=== PATIENT | male | born 1975 | race Caucasian/White ===

== ENCOUNTER 2024-02-14 15:36 | Outpatient (CLI) | payer OTHER, SELFPAY ==
[2024-02-14 15:54] LABS: Basophils Absolute Auto 0.1 K/mm3 (0.0-0.1); Basophils Percent Auto 0.8 % (0.2-1.2); Eosinophils Absolute Auto 0.3 K/mm3 (0-0.3); Hematocrit 42.8 % (42.0-52.0); Hemoglobin 14.8 g/dL (14.0-18.0); Immature Granulocyte Absolute 0.02 K/mm3 (0.00-0.031); Immature Granulocyte Percent A 0.3 % (0-0.5); Lymphocytes Absolute Auto 2.46 K/mm3 (0.9-3.2); Mean Corpuscular HGB Conc 34.6 g/dl (32-36); Mean Corpuscular Hemoglobin 31.5 pg (26-34); Mean Corpuscular Volume 91.1 fl (80-100); Mean Platelet Volume 9.2 fl (7.4-10.4); Monocytes Absolute Auto 0.7 K/mm3 (0.1-0.6); Monocytes Percent Auto 9.2 % (2.6-8.5); Neutrophils Absolute Auto 4.4 K/mm3 (1.3-6.7); Neutrophils Percent Auto 54.7 % (45.5-73.1); Platelet Count Result 266 k/mm3 (150-375); Red Cell Distribution Width 11.8 % (11.5-14.5); White Blood Count 7.9 K/mm3 (4.5-10.0)
[2024-02-14 17:05] LABS: Iron 124 ug/dL (49-181)
[2024-02-14 17:14] LABS: Percent Iron Saturation 35 % (20-50)
[2024-02-14 19:54] LABS: Alanine Aminotransferase 31 U/L (6-50); Alkaline Phosphatase 63 U/L (38-126); Anion Gap 11 mmol/L (4-12); Aspartate Amino Transferase 35 U/L (17-59); Bilirubin,Total 0.7 mg/dL (0.2-1.3); Blood Urea Nitrogen 17 mg/dL (9-20); Calcium 10.3 mg/dL (8.4-10.2); Carbon Dioxide 25 mmol/L (22-30); Chloride 104 mmol/L (98-107); Estimated Glomerular Filt Rate > 60; Glucose 88 mg/dL (65-110); Potassium 4.2 mmol/L (3.4-5.0); Sodium 140 mmol/L (137-145)
[2024-02-14 21:03] LABS: Folic Acid 13.6 ng/mL (2.76->20)
== END 2024-02-14 15:37 | disposition home or self-care (01) ==
LOC: ANHLAB 15:41
PROVIDERS: PCP Nurse Practitioner Family; Visit Provider Internal Medicine Hematology & Oncology
DX: D64.9 Anemia, unspecified (principal)
CPT/HCPCS: 36415; 80053; 82607; 82728; 82746; 83540; 83550; 85025

== ENCOUNTER 2024-02-25 15:11 | Outpatient (CLI) | payer OTHER, SELFPAY ==
[2024-03-07 23:28] LABS: Factor V (Leiden) Mutation POSITIVE
== END 2024-02-25 15:12 | disposition home or self-care (01) ==
LOC: ANHLAB 15:12
PROVIDERS: PCP Nurse Practitioner Family; Visit Provider Internal Medicine Hematology & Oncology
DX: D64.9 Anemia, unspecified (principal); D68.69 Other thrombophilia
CPT/HCPCS: 36415; 81240; 81241

== ENCOUNTER 2024-09-18 10:46 | Outpatient (CLI) | payer OTHER, SELFPAY ==
[2024-09-18 11:12] LABS: Basophils Absolute Auto 0.1 K/mm3 (0.0-0.1); Basophils Percent Auto 0.8 % (0.2-1.2); Eosinophils Absolute Auto 0.3 K/mm3 (0-0.3); Eosinophils Percent Auto 4.2 % (0-4.4); Hematocrit 46.2 % (42.0-52.0); Hemoglobin 15.9 g/dL (14.0-18.0); Immature Granulocyte Absolute 0.02 K/mm3 (0.00-0.031); Immature Granulocyte Percent A 0.3 % (0-0.5); Lymphocytes Absolute Auto 1.72 K/mm3 (0.9-3.2); Mean Corpuscular HGB Conc 34.4 g/dl (32-36); Mean Corpuscular Hemoglobin 31.5 pg (26-34); Mean Corpuscular Volume 91.7 fl (80-100); Mean Platelet Volume 9.1 fl (7.4-10.4); Monocytes Absolute Auto 0.6 K/mm3 (0.1-0.6); Monocytes Percent Auto 8.6 % (2.6-8.5); Neutrophils Absolute Auto 3.8 K/mm3 (1.3-6.7); Neutrophils Percent Auto 59.1 % (45.5-73.1); Platelet Count Result 266 k/mm3 (150-375); Red Blood Count 5.04 M/mm3 (4.6-6.20); Red Cell Distribution Width 11.7 % (11.5-14.5); White Blood Count 6.4 K/mm3 (4.5-10.0)
[2024-09-18 15:25] LABS: Iron 111 ug/dL (49-181)
[2024-09-18 15:31] LABS: Alanine Aminotransferase 51 U/L (6-50); Albumin Level 4.9 g/dL (3.5-5.1); Alkaline Phosphatase 66 U/L (38-126); Anion Gap 9 mmol/L (4-12); Aspartate Amino Transferase 43 U/L (17-59); Bilirubin,Total 0.6 mg/dL (0.2-1.3); Blood Urea Nitrogen 19 mg/dL (9-20); Calcium 9.8 mg/dL (8.4-10.2); Carbon Dioxide 31 mmol/L (22-30); Chloride 96 mmol/L (98-107); Estimated Glomerular Filt Rate > 60; Glucose 87 mg/dL (65-110); Potassium 4.6 mmol/L (3.4-5.0); Sodium 136 mmol/L (137-145)
[2024-09-18 15:38] LABS: Percent Iron Saturation 30 % (20-50)
[2024-09-18 16:42] LABS: Folic Acid 17.3 ng/mL (2.76->20)
== END 2024-09-18 10:47 | disposition home or self-care (01) ==
LOC: ANHLAB 10:48
PROVIDERS: PCP Nurse Practitioner Family; Visit Provider Internal Medicine Hematology & Oncology
DX: D64.9 Anemia, unspecified (principal)
CPT/HCPCS: 36415; 80053; 82607; 82728; 82746; 83540; 83550; 85025

== ENCOUNTER 2024-12-26 12:20 | Outpatient (CLI) | payer OTHER, SELFPAY ==
[2024-12-26 12:33] LABS: Basophils Absolute Auto 0.1 K/mm3 (0.0-0.1); Basophils Percent Auto 0.8 % (0.2-1.2); Eosinophils Absolute Auto 0.8 K/mm3 (0-0.3); Eosinophils Percent Auto 7.8 % (0-4.4); Hematocrit 39.1 % (42.0-52.0); Hemoglobin 13.7 g/dL (14.0-18.0); Immature Granulocyte Absolute 0.08 K/mm3 (0.00-0.031); Immature Granulocyte Percent A 0.8 % (0-0.5); Lymphocytes Absolute Auto 1.71 K/mm3 (0.9-3.2); Lymphocytes Percent Auto 17.7 % (18.3-44.2); Mean Corpuscular Hemoglobin 31.6 pg (26-34); Mean Corpuscular Volume 90.3 fl (80-100); Mean Platelet Volume 8.6 fl (7.4-10.4); Monocytes Absolute Auto 0.8 K/mm3 (0.1-0.6); Monocytes Percent Auto 8.2 % (2.6-8.5); Neutrophils Absolute Auto 6.3 K/mm3 (1.3-6.7); Neutrophils Percent Auto 64.7 % (45.5-73.1); Platelet Count Result 375 k/mm3 (150-375); Red Blood Count 4.33 M/mm3 (4.6-6.20); Red Cell Distribution Width 11.4 % (11.5-14.5); White Blood Count 9.7 K/mm3 (4.5-10.0)
[2024-12-26 13:50] LABS: Add Urine Microscopic? YES; Appearance Urine Clear (Clear); Bacteria Urine None Seen /hpf; Bilirubin Urine Negative (Negative); Blood Urine Negative (Negative); Color Urine Yellow (Yellow); Glucose Urine UA Negative (Negative); Ketones Urine Negative (Negative); Leukocyte Esterase Ur Trace LEU/UL (Negative); Nitrate Urine Negative (Negative); Non Pathogenic Casts 0-2; Protein Urine Negative (Negative); RBC Urine 0-2 /hpf (0-2); Specific Grav Ur 1.008 (1.001-1.035); Squamous Epithelial Cell Urine None Seen /hpf (Few); Urobilinogen Urine 0.2 mg/dL (<2.0); pH Urine 5.5 (5.0-9.0)
[2024-12-26 14:06] LABS: Hemoglobin A1C 5.8 % (<5.7)
[2024-12-26 14:06] LABS: Alanine Aminotransferase 31 U/L (6-50); Albumin Level 4.4 g/dL (3.5-5.1); Alkaline Phosphatase 88 U/L (38-126); Anion Gap 11 mmol/L (4-12); Aspartate Amino Transferase 27 U/L (17-59); Bilirubin,Total 0.7 mg/dL (0.2-1.3); Blood Urea Nitrogen 38 mg/dL (9-20); Calcium 9.5 mg/dL (8.4-10.2); Carbon Dioxide 28 mmol/L (22-30); Chloride 101 mmol/L (98-107); Estimated Glomerular Filt Rate 29; Glucose 85 mg/dL (65-110); Potassium 4.5 mmol/L (3.4-5.0); Sodium 140 mmol/L (137-145)
== END 2024-12-26 12:21 | disposition home or self-care (01) ==
LOC: ANHLAB 12:22
PROVIDERS: PCP Nurse Practitioner Family; Visit Provider Nurse Practitioner Family
DX: R35.1 Nocturia (principal)
CPT/HCPCS: 36415; 80053; 81001; 83036; 85025

== ENCOUNTER 2025-01-05 09:02 | Outpatient (CLI) | payer OTHER, SELFPAY ==
[2025-01-05 11:32] LABS: Add Urine Microscopic? YES; Appearance Urine Clear (Clear); Bacteria Urine None Seen /hpf; Bilirubin Urine Negative (Negative); Blood Urine Negative (Negative); Color Urine Yellow (Yellow); Glucose Urine UA Negative (Negative); Ketones Urine Negative (Negative); Leukocyte Esterase Ur 1+ LEU/UL (Negative); Nitrate Urine Negative (Negative); Non Pathogenic Casts 0-2; Protein Urine Negative (Negative); RBC Urine 0-2 /hpf (0-2); Specific Grav Ur 1.006 (1.001-1.035); Squamous Epithelial Cell Urine None Seen /hpf (Few); Urobilinogen Urine 0.2 mg/dL (<2.0); pH Urine 5.5 (5.0-9.0)
[2025-01-05 11:43] LABS: Albumin Level 4.4 g/dL (3.5-5.1); Anion Gap 14 mmol/L (4-12); Blood Urea Nitrogen 34 mg/dL (9-20); Calcium 9.6 mg/dL (8.4-10.2); Carbon Dioxide 26 mmol/L (22-30); Chloride 103 mmol/L (98-107); Estimated Glomerular Filt Rate 31; Glucose 143 mg/dL (65-110); Phosphorus 4.1 mg/dL (2.5-4.5); Potassium 4.4 mmol/L (3.4-5.0); Sodium 143 mmol/L (137-145)
[2025-01-08 14:38] LABS: PSA, Free 0.7 ng/mL; PSA, Total 4.5 ng/mL (< OR = 4.0); Percent Free Prostate Spec Ag 16 % (calc) (>25)
== END 2025-01-05 09:03 | disposition home or self-care (01) ==
LOC: ANHLAB 09:04
PROVIDERS: PCP Nurse Practitioner Family
DX: R35.0 Frequency of micturition (principal)
CPT/HCPCS: 36415; 80069; 81001; 84153; 84154; 87086

== ENCOUNTER 2025-03-02 12:56 | Outpatient (CLI) | payer OTHER, SELFPAY ==
--- NOTE | ~2025-03-02 | US_ITS ---
Renal-Bladder ultrasound Clinical History: Chronic kidney disease Technique: Real-time sonographic imaging of the kidneys and urinary bladder was performed. Findings: The right kidney measures 10.5 cm in length and the left kidney measures 9.9 cm. There is n o hydronephrosis or renal calculus identified. Renal cortical echogenicity is within normal limits. N o renal mass lesion is identified. The urinary bladder is partially distended at the time of this exam. No intraluminal echoes are ident ified. No abnormal wall thickening is seen. Impression: Unremarkable ultrasound of the kidneys and urinary bladder. Reviewed, dictated and finalized at location M. Impression: Unremarkable ultrasound of the kidneys and urinary bladder.
== END 2025-03-02 12:57 | disposition home or self-care (01) ==
LOC: MICIMG 12:57
PROVIDERS: PCP Internal Medicine Nephrology; Visit Provider Internal Medicine Nephrology
DX: N18.32 Chronic kidney disease, stage 3b (principal)
CPT/HCPCS: 76775

== ENCOUNTER 2025-03-10 08:32 | Outpatient (CLI) | payer OTHER, SELFPAY ==
[2025-03-10 09:42] LABS: Albumin Level 4.8 g/dL (3.5-5.1); Anion Gap 11 mmol/L (4-12); Blood Urea Nitrogen 19 mg/dL (9-20); Calcium 9.3 mg/dL (8.4-10.2); Carbon Dioxide 28 mmol/L (22-30); Chloride 100 mmol/L (98-107); Estimated Glomerular Filt Rate 41; Glucose 85 mg/dL (65-110); Phosphorus 3.2 mg/dL (2.5-4.5); Sodium 139 mmol/L (137-145)
[2025-03-10 09:47] LABS: Complement C3 144 mg/dL (88-165)
[2025-03-10 10:25] LABS: Creatinine Urine 85.3 mg/dL; Total Protein Urine Random 11 mg/dL; Ur Ttl Prot Creatinine Ratio 0.13 mg/mg (0-0.20)
--- OUTSIDE RECORDS SUMMARY | 2025-03-10 15:56 | XMS_ITS | Data Portability ---
Author Organization [place] [facility], Main Office Address [address] [place] [address] Care Team Providers Care Etl Data Architect Name Role Phone AMBER BANDA Primary Care Provider AMBER BANDA Referring Provider Assessment Encounter Date Assessment Date Assessment LastModified by Organization Details LastModified Time 01/20/2024 01/20/2024 I have reconciled the patient's medications post their discharge from inpatient facility. Not available 01/20/2024 09:13:13 08/16/2024 08/16/2024 48-year-old patient presents today with left ankle pain after a fall off of a ladder at work on Wednesday. He fell about 2 ft and rolled the ankle on the landing. He felt a pop. He presented to the emergency room where x-rays were taken and he was placed in a splint. He removed the splint on Wednesday and returned to work. Today he rates his pain 5/10. He has been ambulating on the ankle. He presents today in a work boot. For treatment he has been taking naproxen. Review of systems per patient questionnaire Imaging: X-rays reviewed show no acute bony abnormality or fracture. There is a displaced fracture of the dorsal aspect of the navicular that looks to be older. Preserved joint spaces throughout. Physical exam: Bruising and edema noted around ankle. Tenderness with palpitation over medial and lateral ankle over the soft tissues. No pain with palpitation over the top of the foot or elsewhere around foot. Able to perform gentle ankle range of motion. Able to wiggle toes. Sensation intact throughout. He states that even though it is painful he would like to continue walking on it and working. We recommended wearing a boot but he is not interested in this. We will provide him with a lace-up ankle brace that he can wear inside of a work boot. We discussed that if he would like restrictions for work we can write him a note for that. He is not interested. He can continue taking naproxen, icing, and elevating. We can see him back as needed for pain. He is in agreement with this plan. [email or web address] Not available 08/18/2024 09:27:38 Plan of Treatment Reminders Order Date Submit Date Provider Last Modified By Organization Details Last Modified Time Details Appointments Any 15 2024 08:30A M Nora hendrix MD Not available Not available Not available Lab urinalysi s complete, reflex culture 2024 025 [facility], [address] [place] [address], [id number], 01/11/2025 08:18:59 PSA, serum or plasma 2024 025 [facility], [address] [place] [address], [id number], 01/11/2025 08:18:59 renal function panel, serum 2024 025 [facility], [address] [place] [address], [id number], 01/08/2025 13:57:19 lipid panel, serum 2023 024 [facility] (Lab), [address] [place], [address], 06/13/2024 14:39:12 PSA, serum or plasma 2023 024 [facility] (Lab), [address] [place], [address], 06/28/2024 08:12:02 CBC w/ auto diff 2023 024 [facility] (Lab), [address] [place], [address], 12/11/2024 07:40:59 CMP, serum or plasma 2023 024 [facility] (Lab), [address] [place], [address], 12/11/2024 07:40:59 vitamin D, 25-hydrox y, total, serum 2023 024 [facility] (Lab), [address] [place], [address], 06/28/2024 08:12:01 hepatitis C virus Ab, serum 2023 024 [facility], [address] [place], [address], 06/28/2024 08:12:02 vitamin B12, serum 2023 024 [facility] (Lab), [address] [place], [address], 06/28/2024 08:12:01 TSH, serum or plasma 2023 024 [facility] (Lab), [address] [place], [address], 12/11/2024 07:40:58 T4, free, serum 2023 024 [facility] (Lab), [address] [place], [address], 06/28/2024 08:12:01 lipid panel, serum [address] [facility], [address] [place], [address], 03/02/2024 11:41:27 TSH, serum or plasma 2023 024 [facility] (Lab), [address] [place], [address], 07/25/2024 08:05:37 CBC w/ auto diff 2023 024 [facility] (Lab), [address] [place], [address], 02/17/2024 13:58:34 CMP, serum or plasma 2023 024 [facility] (Lab), [address] [place], [address], 07/25/2024 08:05:37 glycohemo globin, total, blood 2023 024 [facility] (Lab), [address] [place], [address], 07/25/2024 08:05:37 Referral None recorded. Procedures None recorded. Surgeries None recorded. Imaging None recorded. Medication Orders omeprazol e 20 mg capsule,d elayed release [facility]24 [facility]25 [id number], [address] [place], [place], [id number], 12/12/2024 09:20:58 Eliquis 5 mg tablet 2024 025 [facility], [address] [place], [place], [id number], 12/12/2024 09:20:57 omeprazol e 20 mg capsule,d elayed release 2023 024 [id number], [address] [place], [place], [id number], 06/13/2024 09:44:19 Eliquis 5 mg tablet [address] [id number], [address] [place], [id number], 12/12/2024 09:09:15 Patient TargetsNo targets recorded. Patient Instructions Encounter Date Encounter Id Patient Instructions Last Modified By Organization Details Last Modified Time 01/20/2024 [id number] Follow up in 4 months Labs ordered Prescription sent to pharmacy Thank you for your visit to our office today. We would like to request that you reach out to your referring or previous provider and request that they send us a Summary of Care in electronic form, so that we may have it on file in your medical record. At your visit, we had the medical records we needed to provide you with the best possible care; however, for insurance purposes, an electronic Summary of Care is beneficial. Thank you for your assistance in obtaining this information and we look forward to providing continued care to you. Please review your medication list from the Summary of Care for this visit. If there are any differences from what you are currently taking at home, please call us to discuss. Not available 01/20/2024 09:29:15 Homebound Status : {{Patient has an inability to leave the home without a taxing effort and assistance from another person Does not meet homebound status}} Required Home Health Services: {{none penitentiary, physical therapy, occupational therapy penitentiary, physical therapy penitentiary}} Durable Medical Equipment needed: {{cane walker walk er with seat manual wheelchair bedside commode oxygen}} Billing Guidelines CPT code 98307- Transitional Care Management services with moderate medical decision complexity (sgaa-gk-gwoe visit within 14 days of discharge). CPT code 34423- Transitional Care Management services with high medical decision complexity (fvay-of-dtcf visit within 7 days of discharge). Not available 01/20/2024 09:13:13 06/13/2024 [id number] Follow up in 6 months Obtain labs Prescription sent to pharmacy Tests: None Referral: None Recommend: None Not available 06/13/2024 09:43:08 12/12/2024 [id number] Follow up in 6 months Prescriptions sent to pharmacy Tests: Referral: Recommend: Tetanus vaccine Not available 12/12/2024 09:20:52 01/04/2025 [id number] Follow up in 3 months Obtain labs Tests: Referral: Recommend: Not available 01/04/2025 09:20:19 Reason for Referral None Reported. Results Created Date Observation Date Name Description Value Unit Range Abnormal Flag Note LastModifiedBy Organization Detail LastModifiedTime Result Notes None recorded. 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 819502454 Completed 06/13/2024 Amber Banda APRN [address], [address], [place], [address], Ayannah 4 14:47:56 Low back pain 562706981 Active Amber Banda APRN [address], [address], [place], [address], Ayannah 4 09:49:01 Current tear of medial cartilage AND/OR meniscus of knee Completed 06/13/2024 Amber Banda APRN [address], [address], [place], [address], Ayannah 4 14:47:54 Hematoche adrián 179236764 Active Amber Banda APRN [address], [address], [place], [address], Ayannah 4 15:34:49 Vomiting 411944068 Completed 06/13/[address], [place], [address], [place] 4 14:47:33 Factor V deficienc y 4898220 Active Amber Banda APRN [address], [address], [place], [address], [place] 4 15:34:42 Pain of hip region 93001227 Completed 06/13/2024 Amber Banda APRN [address], [address], [place], [address], Ayannah 4 14:47:51 Pulmonary embolism 44141456 Completed 06/13/2024 Amber Banda APRN [address], [address], [place], [address], Ayannah 14:47:41 Factor V Leiden mutation 753448694 Completed 202306/13/2024 Amber Banda APRN [address], [address], [place], [address], Boxed 14:48:09 Hyperlipi demia 68159416 Active 2023 Amber Banda APRN [address], [address], [place], [address], Boxed 14:47:48 Hypothyro idism 28416678 Active 2023 Amber Banda APRN [address], [address], [place], [address], Boxed 14:47:45 Vitamin D deficienc y 94864242 Active 2023 Amber Banda APRN [address], [address], [place], [address], Boxed 14:47:31 Gastroeso phageal reflux disease 969733099 Active 2023 GERSON Ru[address], [address], [place], [address], Boxed 09:34:21 Sprain of left ankle 928385301674 Active GERSON Ruiz [address], [place], [address], Boxed 10:22:40 Pain of left ankle joint 549214885739 [address]7076 Active 2023 JING Frazier null, [employer] [facility] [employer] [facility] 10:35:20 Pleurisy 352932319 Active [address]ERSON [address], [place], [address], Ayannah 5 17:27:53 Exacerbat ion of intermitt ent asthma 555042798 Active Amber Banda APRN [address], [address], [place], [address], Box[place] 5 17:27:53 Nocturia 387938988 Active 2024 Amber Banda APRN [address], [address], [place], [address], Boxed 5 14:05:30 Micturiti on frequency and polyuria 230176424 Active 2024 Amber Banda APRN [address], [address], [place], [address], Box[employer] 5 09:20:46 Serum creatinin e above reference range 471299041 Active 2024 Amber Banda APRN [address], [address], [place], [address], Box[place] 5 08:55:44 Chronic kidney disease stage 3B 549865008 Active 2024 Amber Banda APRN [address], [address], [place], [address], Box[employer] 5 08:20:38 Problem Notes None recorded. Medical Equipment None Reported. Allergies Allergen ID Allergen Name Allergen Category Reaction Reaction Severity Criticality Documentation Date Start Date Code Code System Note Provider Name and Address Organization Details Recorded Time acetamino phen / hydrocodo ne medicatio n Not available Not available Not available 01/06/2023 25788 2 RxNorm Not Available [employer] 3 08:14:33 97270 amoxicill in medicatio n vomiting Not available Not available 01/20/2024 723 RxNorm MARISA Doe, [facility] 4 09:05:25 Medications Name Sig Start Date Stop Date Status Note LastModified by Organization Details LastModified Time carisoprod ol 350 mg tablet Take 1 tablet every day by oral route at bedtime. 02/09 completed Not Available Not Available Not Available prednisone 10 mg tablet Take by oral route. active Not Available Not Available No t Available ipratropiu m 0.5 mg-albuter ol 3 mg (2.5 mg base)/3 mL nebulizati on soln 3 mL by inhalati on route. 11/25 completed Not Available Not Available Not Available azithromyc in 250 mg tablet TAKE 2 TABLETS (500 MG) BY ORAL ROUTE ONCE DAILY FOR 1 DAY THEN 1 TABLET (250 MG) BY ORAL ROUTE ONCE DAILY FOR 4 DAYS active Not Available Not Available No t Available aspirin 325 mg tablet Take 1 tablet every day by oral route. 12/29 completed Not Available Not Available Not Available Isovue-370 76 % intravenou s solution 100 mL by intraven . route. 11/25 completed Not Available Not Available Not Available phenazopyr idine 200 mg tablet TK 1 T PO TID 01/25 completed Not Available Not Available Not Available prednisone 20 mg tablet TAKE 2 TABLETS BY MOUTH DAILY FOR 5 DAYS 12/12 completed Not Available Not Available Not Available naproxen 250 mg tablet 250 mg by oral route. 08/12 completed Not Available Not Available Not Available acetaminop hen 300 mg-codeine 30 mg tablet TAKE 1 TABLET BY MOUTH FOUR TIMES DAILY NEEDED FOR PAIN 05/26 completed Not Available Not Available Not Available omeprazole 40 mg capsule,de layed release Take 1 capsule every day by oral route for 30 days. 02/09 completed Not Available Not Available Not Available tramadol 50 mg tablet Take 1 tablet 3 times a day by oral route as needed. 02/09 completed called toño bearden Not Available Not Available Not Available ketorolac 30 mg/mL (1 mL) injection solution Inject 1 mL every 6 hours by intramus cular route. 02/09 completed Not Available Not Available Not Available ceftriaxon e 1 gram solution for injection Take 1 g by injectio n route. 01/25 completed Not Available Not Available Not Available lansoprazo le 30 mg capsule,de layed release take 1 po qd 12/29 completed Not Available Not Available Not Available prednisone 50 mg tablet TAKE 1 TABLET BY MOUTH DAILY IN THE MORNING WITH FOOD 05/26 completed Not Available Not Available Not Available polymyxin B sulfate 10,000 unit-trime thoprim 1 mg/mL eye drops INSTILL 1-2 DROPS IN AFFECTED EYE FOUR TIMES DAILY X 7 DAYS 06/13 completed Not Available Not Available Not Available omeprazole 20 mg capsule,de layed release TAKE 1 CAPSULE BY MOUTH EVERY DAY IN THE MORNING FOR GERD active Not Available Not Available No t Available aspirin 81 mg chewable tablet Chew 1 tablet every day by oral route. 06/13 completed Not Available Not Available Not Available cefdinir 300 mg capsule TAKE ONE CAPSULE BY MOUTH TWICE DAILY FOR 7 DAYS 01/19 completed Not Available Not Available Not Available fluticason e propionate 50 mcg/actuat ion nasal spray,susp ension SPARY 1-2 SPRAYS INTO EACH NOSTRIL ONCE DAILY 06/13 completed Not Available Not Available Not Available naproxen 500 mg tablet TAKE 1 TABLET BY MOUTH TWICE DAILY WITH FOOD 12/12 completed Not Available Not Available Not Available amoxicilli n 875 mg-potassi um clavulanat e 125 mg tablet TAKE 1 TABLET BY MOUTH TWICE DAILY 01/19 completed Not Available Not Available Not Available azithromyc in 500 mg tablet Take 2 tablets every day by oral route for 1 day. active Not Available Not Available No t Available lansoprazo le 30 mg delayed release,di sintegrati ng tablet Take 1 tablet every day by oral route. 02/09 completed Not Available Not Available Not Available Excedrin Migraine PRN active Not Available Not Available Not Available omeprazole 20 mg tablet,del ayed release Take 1 tablet by oral route. 12/12 completed Not Available Not Available Not Available Eliquis 5 mg tablet TAKE 1 TABLET BY MOUTH TWICE DAILY active Not Available Not Available No t Available morphine 2 mg/mL intravenou s syringe 2 mg by intraven . route. 11/25 completed Not Available Not Available Not Available Fluvirin 2822-8590( PF) 45 mcg (15 mcg x3)/0.5 mL intramuscu lar syringe active Not Available Not Available Not Available Vitals Date Recorded Body weight Body mass index (BMI) Body height Heart rate Oxygen saturation Oxygen saturation in Arterial blood by Pulse oximetry Systolic blood pressure Diastolic blood pressure Provider Name and Address Organization Details Last Updated DateTime 4 24608.5 9 g 25.1 kg/m2 168.91 cm 76 /min 97 % 97 % 122 mm[Hg] 70 mm[Hg] Italo Amaya CMA [facility] [employer] [facility] 4 09:03:28 Date Recorded Body height Body mass index (BMI) Body weight Body temperature Heart rate Oxygen saturation Oxygen saturation in Arterial blood by Pulse oximetry Systolic blood pressure Diastolic blood pressure Provider Name and Address Organization Details Last Updated DateTime 4 168.91 cm 26.2 kg/m2 78716.7 4 g 97.2 [degF] 63 /min 96 % 96 % 118 mm[Hg] 68 mm[Hg] Sujatha Milan MA [facility] [employer] [facility] 4 09:03:54 Date Recorded Body height Body mass index (BMI) Body weight Pain severity - 0-10 verbal numeric rating [Score] - Reported Provider Name and Address Organization Details Last Updated DateTime 08/16/2024 168.91 cm 26.2 kg/m2 22865.74 g 5 JING Frazier [facility] [employer] [facility] 08/16/2024 10:33:12 Date Recorded Body height Body mass index (BMI) Body weight Body temperature Heart rate Oxygen saturation Oxygen saturation in Arterial blood by Pulse oximetry Pain severity - 0-10 verbal numeric rating [Score] - Reported Systolic blood pressure Diastolic blood pressure Provider Name and Address Organization Details Last Updated DateTime 5 168.91 cm 28.1 kg/m2 99297.8 5 g 97.3 [degF] 97 /min 98 % 98 % 0 114 mm[Hg] 72 mm[Hg] Sujatha Milan MA [facility] [employer] [facility] 5 09:07:46 Date Recorded Body height Body mass index (BMI) Body weight Body temperature Heart rate Oxygen saturation Oxygen saturation in Arterial blood by Pulse oximetry Pain severity - 0-10 verbal numeric rating [Score] - Reported Systolic blood pressure Diastolic blood pressure Provider Name and Address Organization Details Last Updated DateTime 5 168.91 cm 28.1 kg/m2 68178.8 5 g 97.4 [degF] 80 /min 98 % 98 % 0 108 mm[Hg] 72 mm[Hg] Sujatha Milan [place] [facility] [place] [employer] 5 09:07:14 Social History Question Answer Notes LastModified by Organizat ion Details LastModified Time Tobacco Smoking Status Former Smoker Not Available [facility] 01/06/2023 08:06:27 What Is Your Level Of Alcohol Consumption? None [id number] Information not available 01/06/2023 What Is Your Level Of Caffeine Consumption? Moderate [id number].85511 [id number] Information not available 01/06/2023 In The 14 Days Before Symptom Onset, Have You Had Close Contact With A Laboratory-confi rmed COVID-19 While That Case Was Ill? No MIGRATION.05703 25850 Information not available 01/06/2023 In The 14 Days Before Symptom Onset, Have You Had Close Contact With A Person Who Is Under Investigation For COVID-19 While That Person Was Ill? No MIGRATION.02461 23392 Information not available 01/06/2023 Are You Currently Employed? Yes darian Information not available 12/12/2024 What Type Of Diet Are You Following? REGULAR MIGRATION.33559 23167 Information not available 01/06/2023 What Is The Highest Grade Or Level Of School You Have Completed Or The Highest Degree You Have Received? 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 No MIGRATION.57831 25152 Information not available 01/06/2023 What Is The Fluoride Status Of Your Home? Unknown MIGRATION.38262 22307 Information not available 01/06/2023 When Did You Quit Smoking? 6-10yearssincelastc igarette MIGRATION.04054 40003 Information not available 01/06/2023 Are There Any Guns Present In Your Home? No MIGRATION.93615 04535 Information not available 01/06/2023 Do You Use Insect Repellent Routinely? No MIGRATION.37408 71608 Information not available 01/06/2023 Where Do You Live? SingleLevelHouse MIGRATION.14602 57535 Information not available 01/06/2023 What Was The Date Of Your Most Recent Tobacco Screening? 01/04/2025 [email or web address] Information not available 01/04/2025 Do You Have Any Pets? No MIGRATION.22318 32195 Information not available 01/06/2023 Do You Use Your Seat Belt Or Car Seat Routinely? Yes MIGRATION.29538 08771 Information not available 01/06/2023 Do You Have Smoke And Carbon Monoxide Detectors In Your Home? Yes MIGRATION.95754 47751 Information not available 01/06/2023 Are You Passively Exposed To Smoke? No MIGRATION.35369 29090 Information not available 01/06/2023 Are There Any Smokers In Your House? No MIGRATION.62205 09210 Information not available 01/06/2023 Do You Feel Stressed (tense, Restless, Nervous, Or Anxious, Or Unable To Sleep At Night)? [id number] MIGRATION.62129 66433 Information not available 01/06/2023 Do You Use Any Illicit Or Recreational Drugs? No MIGRATION.06637 72131 Information not available 01/06/2023 Do You Use Sunscreen Routinely? No MIGRATION.63473 24788 Information not available 01/06/2023 Have You Recently Traveled Abroad? No MIGRATION.85855 96836 Information not available 01/06/2023 Do You Have Any Dietary Restrictions? No MIGRATION.91235 60782 Information not available 01/06/2023 Do You Or Have You Ever Used Any Other Forms Of Tobacco Or Nicotine? No MIGRATION.06504 66364 Information not available 01/06/2023 Sex: Unknown Functional Status Question Answer Note LastModified by Organizat ion Details LastModified Time What is your exercise level? Moderate [id number] Information not available 01/06/2023 Mental Status None recorded. Family History Relationship Description Onset Age of this Age Resolved Age Notes LastModified by Organization Details LastModified Time Sister Blood coagulation disorder 18 [id number] Not available 01/06/2023 08:06:44 Father Family history of stroke [email or web address] Not available 2023 10:34:08 Father Hypertensive disorder [email or web address] Not available 2023 10:34:22 Medical History Condition Response NERVE DISEASE N BLINDNESS N RHEUMATIC FEVER N KIDNEY STONES N BLADDER PROBLEMS N MRSA N OTHER # 1 N POLIO N LUNG DISEASE/DISORDER N HISTORY OF DRUG ABUSE N RADIATION / CHEMOTHERAPY N COPD N Other # 2 N BLOOD DISEASES N EAR OR HEARING PROBLEMS N MUMPS N SHINGLES N BOWEL PROBLEMS N DEPRESSION (INCLUDING POST ) N STROKE/TIA N ULCERS N BENIGN PROSTATIC HYPERPLASIA N MEASLES N HYPOTENSION N MYOCARDIAL INFARCTION N OBESITY N GERD/NAUSEA N ANEURYSM N URINARY/BLADDER/KIDNEY PROBLEMS N CORONARY ARTERY DISEASE (CAD) N ADDICTION CONCERNS N Impotence N ENDOMETRIOSIS N USE OF BLOOD THINNERS N SKIN PROBLEMS N GASTROINTESTINAL DISORDER N PERIPHERAL VASCULAR DISEASE N MUSCLE,JOINT OR BONE PROBLEMS N GASTROINTESTINAL BLEEDING N BLOOD CLOTS Y ASTHMA N CATARACTS N ERECTILE DYSFUNCTION N VARICOSITIES N GI PROBLEMS N Low Testosterone N INFERTILITY N AIDS/HIV N CHEMOTHERAPY / RADIATION N LIVER DISEASE N MALE HYPOGONADISM N HYPERTENSION N Deficiency N TOURETTE'S N ANXIETY DISORDER N BLOOD TRANSFUSION N ANEMIA/BLOOD DISORDER N CHRONIC EAR INFECTIONS N BIPOLAR DISORDER Y BRONCHITIS N TUBERCULOSIS N GLAUCOMA N FOOT PROBLEM N DIVERTICULITIS N SLEEP APNEA N CHICKENPOX N INFECTIOUS DISEASE N PROSTATE N HEART ARRHYTHMIA N INSOMNIA N HIGH CHOLESTEROL / HYPERLIPIDEMIA N EYE PROBLEMS N HYPERTHYROIDISM N EDEMA N CHRONIC PAIN SYNDROME N HYPOTHYROIDISM N CONSTIPATION N CAROTID BLOCKAGE N BACK / NECK PROBLEMS N HAVE YOU BEEN HOSPITALIZED OR SEEN IN [facility] IN THE PAST YEAR ? N ATHEROSCLEROSIS N BREAST PROBLEMS N DIALYSIS N ECZEMA N OSTEOPOROSIS N ARTHRITIS N NO SIGNIFICANT PAST MEDICAL HISTORY N APPENDICITIS N DIABETES, TYPE N BAD TEETH N ENT N HEARTBURN / REFLUX N AUTISM SPECTRUM DISORDER (ASD) N HEPATITIS / LIVER DISEASE N GOUT N SLEEP DISORDER N ALZHEIMER'S DISEASE N Brain Problems N DEMENTIA N HERPES N SEIZURES/EPILEPSY N HEADACHES/MIGRAINES N VASCULAR DISEASE N PACEMAKER N Blood Disorder Y DIZZINESS N HEART DISEASE/HEART PROBLEMS N KIDNEY DISEASE N MULTIPLE SCLEROSIS N CANCER: SPECIFY N CARDIAC ARRHYTHMIA N ATRIAL FIBRILLATION N Gall Stones N PULMONARY EMBOLISM N AUTOIMMUNE DISEASE N Immunizations Vaccine Type Date Status Note Provider Nam e and Address Organization Details Recorded Time Tdap 06/08/2020 completed Amber Banda APRN [address], [facility] [address], [place], [address], [place] [facility] 06/13/2024 09:41:12 Influenza, high-dose, trivalent, PF 09/01/2014 completed Amber Banda APRN [address], [address], [place], [address], [facility] 05/17/2024 09:46:04 Past Encounters Encounter ID Performer Location Encounter Start Date Encounter Closed Date Diagnosis/Indication Diagnosis SNOMED-CT Code Diagnosis ICD10 Code Diagnosis Note [id number] JOSE Agrawal [facility] Internal Med [facility] [address] [place] [address]., [address] [address] 05/26/2022 00:00:00 05/26/2022 12:17:27 [id number] Nora downs MD [facility] Internal Med [facility] [address] [place] [address]., [address] [address] 07/02/2022 00:00:00 07/02/2022 11:55:12 [id number] Nora downs MD [facility] Internal Med [facility] [address] [place] [address] [address] 01/20/2024 08:54:27 01/20/2024 09:36:14 Transition of care [id number] 105 Z75.8 Factor V L eiden mutation 348920011 D68.51 Adult heal th examination 058112426 Z00.00 Z13.541 [id number] Nora downs MD [facility] Internal Med [facility] [address] [place], [place] [address]., [address] [address] 06/13/2024 08:54:59 06/13/2024 09:51:27 Hyperlipidemia 50992314 E78.5 Hypothyroidism 29161241 E03.9 Vitamin D deficiency 347 12810 E55.9 Adult heal th examination 385265125 Z00.00 Z13.220 Gastroesop hageal reflux disease 995415051 K21.9 Hepatitis C screening 41 8862380 Z11.59 [id number] Sloan Gupta MD [facility] [place] [address] [place] [address] 08/16/2024 10:05:08 08/16/2024 11:08:54 Pain of left ankle joint [id number] 3228399 M25.670 [id number] Nora downs MD [facility] Internal Med [facility] [address] [facility] [place] [address] 12/12/2024 08:58:43 12/12/2024 09:25:52 Gastroesophageal reflux disease 297370829 K21.9 Factor V L eiden mutation 982927859 D68.51 [id number] Nora downs MD [facility] Internal Med [address] [facility] [facility] [address] [place] [address] 01/04/2025 08:57:33 01/04/2025 09:29:16 Micturition frequency and polyuria 655818560 R35.0 Health Concerns Section Related Observation LastModified by Organization Detai ls LastModified Time None Recorded Concern Status LastModified by Organization Details LastModified Time None Recorded Advance Directives Directive None Recorded Payers Encounter Date Sequence Insurance Name Policy Number Policy Burdick Covered Member ID Burdick Member ID Guarantor Name 01/20/2024 1 [facility] (MEDICAID HMO) [id number] Galo Malave Nohemi [id number] Galo Malave Nohemi 06/13/2024 1 [facility] Galo Malave Nohemi [id number] Galo Harsha Song 08/16/2024 1 [facility] Galo Malave Nohemi [id number] Galo Harsha Song 12/12/2024 1 [facility] Galo Malave Nohemi [id number] Galo Malave Nohemi 01/04/2025 1 [facility] Galo Malave Nohemi [id number] Galo Malave Nohemi Notes Date Note Type Note Provider Name and Address Organization Details Recorded Time 01/20/2024 text/html Galo presents today to establish care and hospital follow up. 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 He went to the hospital due to shoulder and flank pain and found to have bilateral pulmonary embolisms. He was presents today to establish care. He also states that he also has acid reflux, takes over the counter remedies that does not help with the reflux. Amber Banda, [employer] [address] [facility], [address], [place], [address], [place] [employer] 01/20/2024 09:32:22 06/13/2024 text/html Galo presents today for 3 month follow up. He has been diagnosed with Factor V Leiden mutation and is currently taking Eliquis twice daily. 01/20/2024Khangtheresasabiha presents today to establish care and hospital follow up. 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 He went to the hospital due to shoulder and flank pain and found to have bilateral pulmonary embolisms. He was presents today to establish care. He also states that he also has acid reflux, takes over the counter remedies that does not help with the reflux. Amber Banda APRN [address], [address], [place], [address], [employer] 06/13/2024 09:45:43 12/12/2024 text/html Galo presents today for 6 month follow up. He states that a couple of weeks ago he went to the ED for pain in his left lung region, all testing was normal. He was placed on prednisone and cough medication. He states that he feels much better. 06/13/2024Khangtheresasabiha presents today for 3 month follow up. He has been diagnosed with Factor V Leiden mutation and is currently taking Eliquis twice daily. 01/20/2024Khangtheresasabiha presents today to establish care and hospital follow up. 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 He went to the hospital due to shoulder and flank pain and found to have bilateral pulmonary embolisms. He was presents today to establish care. He also states that he also has acid reflux, takes over the counter remedies that does not help with the reflux. Amber Banda APRN [address], [address], [place], [address], [employer] [facility] [employer] 12/12/2024 09:21:14 01/04/2025 text/html 01/04/2025Lunaharsha presents today for 1 month follow up. He states that he has been voiding more throughout the day/night, he states that he increased the amount of water that he will drink through the day. He states that he is also thirsty, but his appetite has decreased. He has not had any weight loss/gain. 12/14/2024Galo presents today for 6 month follow up. He states that a couple of weeks ago he went to the ED for pain in his left lung region, all testing was normal. He was placed on prednisone and cough medication. He states that he feels much better. 06/13/2024Galo presents today for 3 month follow up. He has been diagnosed with Factor V Leiden mutation and is currently taking Eliquis twice daily. 01/20/2024Galo presents today to establish care and hospital follow up. 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 He went to the hospital due to shoulder and flank pain and found to have bilateral pulmonary embolisms. He was presents today to establish care. He also states that he also has acid reflux, takes over the counter remedies that does not help with the reflux. Amber Banda APRN [address] [facility], [facility] [address], [place], [address], [place] [facility] 01/04/2025 09:26:08
--- OUTSIDE RECORDS SUMMARY | 2025-03-10 15:56 | XMS_ITS | Clinical Summary ---
Author Organization [facility] Address [address] [place] [id number] Care Team Providers Care Casing Tier Name Role Phone Amber Haskins NP Primary Care Provider Allergies Active Allergy Reactions Criticality Noted Date Comments Hydrocodone-Acetaminophen Shortness of breath High 0 01/20/2025 Medications metFORMIN (GLUCOPHAGE) 500 mg tablet Take 1 tablet (500 mg total) by mouth 2 (two) times a day with meals 120 tablet 01/20/2025 Active Encounters Date Type Department Care Team Description 01/20/2025 1:25 PM CDT - 01/20/2025 1:56 PM CDT Emergency [address] [address] Stage 3b chronic kidney disease (CKD) (HCC) (Primary Dx); Prediabetes Discharge Disposition: Discharge to home or self care from Last 3 Months Social History Tobacco Use Types Packs/Day Years Used Date Smoking Tobacco: Never Assessed Personal Safety Answer Date Recorded Have you ever been in or are you currently in a harmful physical or emotional relationship or is someone making you feel afraid or unsafe? 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 Gender Identity Not on file Sexual Orientation Not on file Last Filed Vital Signs Vital Sign Reading Time Taken Comments Blood Pressure 121/84 01/20/2025 1:30 PM CDT Pulse 71 01/20/2025 1:30 PM CDT Temperature 36.5 C (97.7 F) 01/20/2025 10:37 AM CDT Respiratory Rate 16 01/20/2025 1:30 PM CDT Oxygen Saturation 98% 01/20/2025 1:30 PM CDT Inhaled Oxygen Concentration - - Weight 79.5 kg (175 lb 4.3 oz) 01/20/2025 11:08 AM CDT Height - - Body Mass Index - - Plan of Treatment Health Maintenance Due Date Last Done Comments Depression Screening 1975 Hepatitis C Screening 1975 Hepatitis B Screening 1993 Regular Well Visit/Exam 18-64 1993 Pneumococcal vaccine <65 (1 of 2 - PCV) 1994 Influenza Vaccine (Season Ended) 2025 09/01/20 14 Colon Cancer Screening-Colonoscopy 01/15/20262015 DTaP/Tdap/Td Vaccine (2 - Td or Tdap) 06/08/203011/2019 Procedures Procedure Name Priority Date/Time Associated Diagnosis Comments CT ABDOMEN PELVIS WO CONTRAST ED 01/20/2025 1:15 PM CDT URINALYSIS, MICROSCOPIC ONLY STAT 01/20/2025 11:16 AM CDT URINALYSIS AND REFLEX TO MICROSCOPIC AND CULTURE STAT 01/20/2025 11:16 AM CDT EGFR STAT 01/20/2025 11:15 AM CDT HEMOGLOBIN A1C STAT 01/20/2025 11:15 AM CDT DIFFERENTIAL AUTO STAT 01/20/2025 11: 15 AM CDT MAGNESIUM STAT 01/20/2025 11:15 AM CDT THYROID FUNCTION CASCADE STAT 01/20/2025 11:15 AM CDT COMPREHENSIVE METABOLIC PANEL STAT 01/20/2025 11:15 AM CDT CBC WITH AUTO DIFFERENTIAL STAT 01/20/2025 11:15 AM CDT COLONOSCOPY 01/16/2016 12:00 AM WEDDING PHOTOGRAPHER from Last 3 Months or Most Recently Relevant to Health Maintenance Results * CT Abdomen Pelvis WO Contrast (01/20/2025 1:15 PM CDT) Anatomical Region Laterality Modality Body N/A Computed Tomogra phy 01/20/2025 1:20 PM CDT Narrative 01/20/2025 1:25 PM CDT EXAM DESCRIPTION: CT ABDOMEN PELVIS WO CONTRAST REASON FOR STUDY: Abdominal pain, acute, nonlocalized Pt arrives today from home Reports symptoms have been going on for the past month Difficulty sleeping Increased urination during the night, increased fatigue, increased thirst. Pt has Factor 5 Pt reports being tested for diabetes 2 weeks ago No known sx or ca TECHNIQUE: CT scan of the abdomen and pelvis performed without intravenous and without oral contrast using helical scanning technique. Reconstructed coronal and sagittal MPR images reviewed. All images stored on PACS. Automated exposure control was used as a dose optimization technique for this examination. COMPARISON: None FINDINGS: The sensitivity for detection of visceral lesions is diminished without the use of intravenous contrast. LOWER CHEST: The heart size is normal. There is no definite evidence of pericardial effusion. There is a mild right basilar and minimal left basilar subsegmental atelectasis and scarring. There is a small hiatal hernia. LIVER: The liver is grossly normal in size and contour. GALLBLADDER: Grossly unremarkable. BILE DUCTS: No intrahepatic or extrahepatic ductal dilatation. SPLEEN: The spleen is grossly normal in size and unremarkable. There are calcified granulomas noted in the spleen. PANCREAS: The pancreas has a grossly unremarkable unenhanced CT appearance. ADRENALS: The bilateral adrenal glands are grossly symmetrical and unremarkable. KIDNEYS/URINARY TRACT: There is no definite unenhanced CT evidence of a focal renal lesion. There is no definite evidence of nephrolithiasis. There is no definite evidence of hydronephrosis or hydroureter. There is circumferential mucosal thickening of the urinary bladder. The prostate gland measures 4.1 cm. GI: There is no definite evidence of a bowel obstruction. There is an air-filled appendix identified without definite evidence of pericecal or periappendiceal inflammatory changes to suggest appendicitis. There is mild mucosal thickening of the descending colon and sigmoid colon. There are scattered colonic diverticula without definite evidence of diverticulitis. There is a tiny fat containing periumbilical hernia. There is no definite evidence of free air or fluid in the abdomen and pelvis. There are borderline enlarged and prominent subcentimeter retroperitoneal lymph nodes with the largest measuring 1.1 cm in the left para-aortic region (axial image 62). There are borderline enlarged and prominent subcentimeter pelvic lymph nodes noted bilaterally with largest lymph node measuring 1.0 cm on the right in the right external iliac region (axial image 117) and 1.1 cm on the left in the left external iliac region (axial image 115). There are scattered subcentimeter inguinal lymph nodes noted bilaterally with the largest measuring 0.5 cm on the right (axial image 130) and 0.7 cm on the left (axial image 141). MUSCULOSKELETAL: There are degenerative changes of the spine. There are mild degenerative changes bilateral sacroiliac joints and bilateral hips. OTHER: No other abnormality. IMPRESSION: No definite evidence of obstructive uropathy or nephrolithiasis. Circumferential mucosal thickening of the urinary bladder, which may be related to underdistention versus cystitis. Clinical correlation with urinary analysis is recommended as clinically indicated. No definite evidence of bowel obstruction. Mild mucosal thickening of the descending colon and sigmoid colon, which may be related to underdistention versus mild colitis of infectious or inflammatory etiology. Borderline enlarged and prominent subcentimeter retroperitoneal and pelvic lymph nodes, which are indeterminate in etiology. Clinical correlation with laboratory values is recommended as clinically indicated. The necessity for further evaluation with PET-CT can be determined clinically, and at a minimum, short-term follow-up repeat CT in 3 months is recommended to assess for stability and/or resolution as clinically indicated. Scattered colonic diverticula without definite evidence of diverticulitis. Normal appendix. THIS IS AN ELECTRONICALLY VERIFIED FINAL REPORT 01/20/2025 1:25 PM - Electronically signed by Layton PERRY T: Report ID: [id number] Reading Location: [id number] Procedure Note Layton Bryan DO - 01/20/2025 EXAM DESCRIPTION: CT ABDOMEN PELVIS WO CONTRAST REASON FOR STUDY: Abdominal pain, acute, nonlocalized Pt arrives today from home Reports symptoms have been going on for thepast month Difficulty sleeping Increased urination during the night,increased fatigue, increased thirst. Pt has Factor 5 Pt reports being tested for diabetes 2 weeks ago No known sx or ca TECHNIQUE: CT scan of the abdomen and pelvis performed without intravenousand without oral contrast using helical scanning technique. Reconstructed coronal and sagittal MPR images reviewed. All images stored on PACS.Automated exposure control was used as a dose optimization technique for this examination. COMPARISON: None FINDINGS: The sensitivity for detection of visceral lesions is diminished without the use of intravenous contrast. LOWER CHEST: The heart size is normal. There is no definite evidence of pericardial effusion. There is a mild right basilar and minimal leftbasilar subsegmental atelectasis and scarring. There is a small hiatal hernia. LIVER: The liver is grossly normal in size and contour. GALLBLADDER: Grossly unremarkable. BILE DUCTS: No intrahepatic or extrahepatic ductal dilatation. SPLEEN: The spleen is grossly normal in size and unremarkable. Thereare calcified granulomas noted in the spleen. PANCREAS: The pancreas has a grossly unremarkable unenhanced CTappearance. ADRENALS: The bilateral adrenal glands are grossly symmetrical and unremarkable. KIDNEYS/URINARY TRACT: There is no definite unenhanced CT evidence of a focal renal lesion. There is no definite evidence of nephrolithiasis.There is no definite evidence of hydronephrosis or hydroureter. There is circumferential mucosal thickening of the urinary bladder. The prostategland measures 4.1 cm. GI: There is no definite evidence of a bowel obstruction. There is an air-filled appendix identified without definite evidence of pericecal or periappendiceal inflammatory changes to suggest appendicitis. There ismild mucosal thickening of the descending colon and sigmoid colon. There are scattered colonic diverticula without definite evidence of diverticulitis. There is a tiny fat containing periumbilical hernia. There is no definite evidence of free air or fluid in the abdomen and pelvis. There are borderline enlarged and prominent subcentimeter retroperitoneal lymph nodes with the largest measuring 1.1 cm in the left para-aorticregion (axial image 62). There are borderline enlarged and prominentsubcentimeter pelvic lymph nodes noted bilaterally with largest lymph node measuring 1.0cm on the right in the right external iliac region (axial image 117) and 1.1cm on the left in the left external iliac region (axial image 115). Thereare scattered subcentimeter inguinal lymph nodes noted bilaterally with the largest measuring 0.5 cm on the right (axial image 130) and 0.7 cm on theleft (axial image 141). MUSCULOSKELETAL: There are degenerative changes of the spine. There are mild degenerative changes bilateral sacroiliac joints and bilateral hips. OTHER: No other abnormality. IMPRESSION: No definite evidence of obstructive uropathy or nephrolithiasis. Circumferential mucosal thickening of the urinary bladder, which may be related to underdistention versus cystitis. Clinical correlation withurinary analysis is recommended as clinically indicated. No definite evidence of bowel obstruction. Mild mucosal thickening of the descending colon and sigmoid colon, whichmay be related to underdistention versus mild colitis of infectious or inflammatory etiology. Borderline enlarged and prominent subcentimeter retroperitoneal andpelvic lymph nodes, which are indeterminate in etiology. Clinical correlationwith laboratory values is recommended as clinically indicated. The necessityfor further evaluation with PET-CT can be determined clinically, and at aminimum, short-term follow-up repeat CT in 3 months is recommended to assess for stability and/or resolution as clinically indicated. Scattered colonic diverticula without definite evidence ofdiverticulitis. Normal appendix. THIS IS AN ELECTRONICALLY VERIFIED FINAL REPORT 01/20/2025 1:25 PM - Electronically signed by Layton Bryan D.O. PS T: Report ID: [id number] Reading Location: [place] [address] PROCEDURES Final Resu lt * (ABNORMAL) Urinalysis reflex to microscopic and culture Urine (01/20/2025 11:16 AM CDT) Color, ur Straw Yellow Clarity, ur Clear Clear [facility] Specific gravity, ur 1.008 1.003 - 1.030 EST[facility]AN pH, urine 5.5 [facility] ANN Comment: Interpretive Data U rine pH is affected by diet, medications, systemic acid-base disturbances, and renal tubular function. pH may affect urinary stone formation. For example, urine pH below 6.0 may help reduce the tendency for calcium phosphate stones and pH greater than 6.0 may reduce the tendency for uric acid stone formation. Source: [place] Current Interpretive Data was last revised on 2017 Protein, ur ql Negative Negative [facility] Glucose, ur ql Negative Negative [facility] Ketones, ur Negative Negative [facility] Bilirubin, ur Negative Negative [facility] Blood, ur Negative Negative [facility] Urobilinogen, ur <2.0 <2.0 mg/dL [facility] Nitrite, ur Negative Negative [facility] Leukocyte esterase, ur 2+(A) Negative [facility] UA reflex comment Reflex to microscopic UA will be performed. [facility] Urine 01/20/2025 11:1 6 AM CDT 01/20/2025 11:20 AM CDT us Sharmin WALKER LAB MICROBIOLOGY - GENERAL O RDERABLES Final Result Performing Organization Address [facility] de Phone Number [address] [place] [address] * (ABNORMAL) Urinalysis, microscopic only (01/20/2025 11:16 AM CDT) Pathologist [facility] WBC, ur 0-5 0 - 5 /HPF RBC, ur 0-2 0 - 2 /HPF [facility] Mucous, ur Present(A) [facility] Culture Reflex Comment Reflex conditions for urine culture (WBC >10) not met. [facility] Urine 01/20/2025 11:1 6 AM CDT 01/20/2025 11:20 AM CDT us Sharmin WALKER LAB URINE ORDERABLES Final R esult Performing Organization Address [facility] Co de Phone Number [address] [place] [address] * (ABNORMAL) eGFR (01/20/2025 11:15 AM CDT) eGFR 48(L) >=60 mL/min/1. 73 m2 Comment: Interpretive Data Reference Interval Normal >/= 90 mL/min/1.73m2 Mildly decreased* 60 - 89 mL/min/1.73m2 Mildly to moderately decreased 45 - 59 mL/min/1.73m2 Moderately to severely decreased 30 - 44 mL/min/1.73m2 Severely decreased 15 - 29 mL/min/1.73m2 Kidney Failure < 15 mL/min/1.73m2 *Relative to young adult level Estimated glomerular filtration rate is determined by the 2020 CKD-EPI equation recommended by the National Kidney Foundation (A Unifying Approach to GFR Estimation: Recommendations of the NKF-ASK Task Force on Reassessing the Inclusion of Race in Diagnosing Kidney Disease, JASN 202). The CKD-EPI equation should not be used for patients with unstable renal function and has not been validated in children and those over 70. Current interpretive data was last reviewed 2021. Blood 01/20/2025 11:1 5 AM CDT 01/20/2025 11:20 AM CDT us Sharmin WALKER LAB BLOOD ORDERABLES Final R esult [place] [id number] [facility] Department [place] [address] * (ABNORMAL) Differential, auto (01/20/2025 11:15 AM CDT) Neutrophil abs 4.7 1.5 - 6.5 K/cumm Imm gran abs 0.1 0.0 - 0.1 K/cumm [facility] Lymphocyte abs 1.6 0.8 - 3.3 K/cumm [facility] Monocyte abs 0.6 0.2 - 0.8 K/cumm [facility] Eosinophil abs 0.6(H) 0.0 - 0.5 K/cumm [facility] Basophil abs 0.1 0.0 - 0.1 K/cumm [facility] Neutrophil pct 61.9 % [facility] Comment: Interpretive Data Percent cell count reference ranges are not reported, since discordance with absolute values may lead to misinterpretation of CBC data. Current Interpretive Data was last revised on 2018. Imm gran pct 0.7 % [facility] Comment: Interpretive Data Percent cell count reference ranges are not reported, since discordance with absolute values may lead to misinterpretation of CBC data. Current Interpretive Data was last revised on 2018. Lymphocyte pct 20.9 % [facility] Comment: Interpretive Data Percent cell count reference ranges are not reported, since discordance with absolute values may lead to misinterpretation of CBC data. Current Interpretive Data was last revised on 2018. Monocyte pct 8.1 % [facility] Comment: Interpretive Data Percent cell count reference ranges are not reported, since discordance with absolute values may lead to misinterpretation of CBC data. Current Interpretive Data was last revised on 2018. Eosinophil pct 7.7 % [facility] Comment: Interpretive Data Percent cell count reference ranges are not reported, since discordance with absolute values may lead to misinterpretation of CBC data. Current Interpretive Data was last revised on 2018. Basophil pct 0.7 % [facility] Comment: Interpretive Data Percent cell count reference ranges are not reported, since discordance with absolute values may lead to misinterpretation of CBC data. Current Interpretive Data was last revised on 2018. Blood 01/20/2025 11:1 5 AM CDT 01/20/2025 11:20 AM CDT Sharmin WALKER LAB BLOOD ORDERABLES Final R esult Performing Organization Address City/[facility]/ZIP Co de Phone Number [address] [place] [address] * Thyroid Function [place] (01/20/2025 11:15 AM CDT) TSH 2.94 0.30 - 4.20 mcIUnit/mL Blood 01/20/2025 11:1 5 AM CDT 01/20/2025 11:20 AM CDT Sharmin WALKER LAB BLOOD ORDERABLES Final R esult [address] [place] [address] * (ABNORMAL) CBC with auto differential (01/20/2025 11:15 AM CDT) WBC 7.6 3.8 - 9.9 K/cumm Hgb 12.5(L) 13.0 - 17.5 g/dL [facility] Hct 36.0(L) 38.9 - 50.3 % [facility] Plt 267 150 - 400 K/cumm [facility] MPV 9.3 9.1 - 12.3 fL [facility] RBC 3.97(L) 4.30 - 5.80 M/cumm [facility] MCV 90.7 81.3 - 96.4 fL [facility] MCH 31.5 27.1 - 33.3 pg [facility] MCHC 34.7 32.3 - 35.7 g/dL [facility] RDW CV 11.8 11.1 - 14.9 % [facility] RDW SD 39.3 35.7 - 48.1 fL [facility] NRBC abs 0.00 0.00 - 0.01 K/cumm [facility] Blood 01/20/2025 11:1 5 AM CDT 01/20/2025 11:20 AM CDT Sharmin WALKER LAB BLOOD ORDERABLES Final R esult Performing Organization Address City/[facility] Co de Phone Number [address] [place], [place] [id number] * Magnesium (01/20/2025 11:15 AM CDT) Pathologist [facility] Magnesium 1.9 1.4 - 2.5 mg/dL Blood 01/20/2025 11:1 5 AM CDT 01/20/2025 11:20 AM CDT Sharmin WALKER LAB BLOOD ORDERABLES Final R esult Performing Organization Address City/[facility] Co de Phone Number [address] [place], [place] [id number] * (ABNORMAL) Hemoglobin A1c (01/20/2025 11:15 AM CDT) Hgb A1C 5.9(H) 4.0 - 5.6 % Estimated Average Glucose 123 mg/dL [facility] Comment: The ADA recommends reporting an estimated Average Glucose (eAG) with all Hemoglobin A1c results using the equation derived from a study of 507 normal and diabetic adults. Minority populations were underrepresented and children were not included. (Diabetes Care 31:8761-1965, 2008). The eAG is not equivalent to a fasting glucose. Blood 01/20/2025 11:1 5 AM CDT 01/20/2025 11:20 AM CDT Sharmin WALKER LAB BLOOD ORDERABLES Final R esult [facility] [address] [facility] Department [place] [address] * (ABNORMAL) Comprehensive metabolic panel (01/20/2025 11:15 AM CDT) Sodium 138 135 - 145 mmol/L Potassium, pl 4.5 3.3 - 4.9 mmol/L [facility] Chloride 102 97 - 110 mmol/L [facility] CO2 24 22 - 32 mmol/L [facility] Anion gap 12 2 - 15 mmol/L [facility] BUN 35(H) 6 - 25 mg/dL [facility] Creatinine 1.71(H) 0.80 - 1.30 mg/dL [facility] Glucose 103 70 - 199 mg/dL [facility] Comment: Interpretive Data Fasting glucose >/= 126 mg/dl is diagnostic for diabetes. Fasting is defined as no caloric intake for at least 8 hours. Fasting glucose between 100 mg/dl to 125 mg/dl is diagnostic of prediabetes. In a patient with classic symptoms of hyperglycemia or hyperglycemic crisis, a random glucose >/= 200 mg/dl is diagnostic for diabetes. In the absence of unequivocal hyperglycemia, results should be confirmed by repeat testing. The classification and Diagnosis of Diabetes Diabetes Care 202; 46: S19-S40. Current interpretive data was last revised 2022. Calcium 9.6 8.5 - 10.3 mg/dL [facility] Bilirubin, total 0.4 0.1 - 1.2 mg/dL [facility] Protein, pl 7.8 6.5 - 8.5 g/dL [facility] Albumin 4.3 3.5 - 5.0 g/dL [facility] Alk phos 89 40 - 130 Units/L [facility] ALT 136(H) 7 - 55 Units/L [facility] AST 86(H) 10 - 50 Units/L [facility] Blood 01/20/2025 11:1 5 AM CDT 01/20/2025 11:20 AM CDT us Sharmin WALKER LAB BLOOD ORDERABLES Final R esult [facility] [address] [facility] [place] [address] * COLONOSCOPY (01/16/2016 12:00 AM WEDDING PHOTOGRAPHER) Anatomical Region Laterality Modality Other Narrative 01/16/2016 12:00 AM WEDDING PHOTOGRAPHER Ordered by an unspecified provider. Procedure Note ProviderSony MD - 01/16/2016 12:00 AM CST PROCEDURE REPORT Patient: GALO WHITMAN Account: [id number] Room No: : 1975 Patient Type: [facility] Attend.: Sloan Mcclellan M.D. Admit Date: 01/16/2016 Dict.: Sloan Mcclellan M.D. Disch. Date: 01/16/2016 NAME OF PROCEDURE: Colonoscopy. HISTORY: This is a 40-year-old white male with nausea, vomiting andabdominal pain and bright red blood per rectum who presents. PHYSICAL EXAMINATION: GENERAL: Thin male. LUNGS: Clear. CARDIOVASCULAR: Unremarkable. PROCEDURE: Colonoscopy was performed with an Olympus video endoscope. On digital exam, there is grade II hemorrhoids. We inserted the endoscopeand advanced it to the cecum. The colonic prep was excellent. We carefullysearched the mucosa and could find no evidence of inflammation or neoplasiaanywhere through the length of the bowel. The patient tolerated the procedurewithout difficulty. POSTOPERATIVE DIAGNOSIS: Grade II hemorrhoids otherwise normal. PLAN: Surveillance at age 50. Electronically Authenticated and Edited by: Sloan Mcclellan MD On 01/17/2016 11:30 AM WEDDING PHOTOGRAPHER Sloan Mcclellan M.D. /laura TD: 01/17/2016 08:04 CC: Jamin eMlo MD us Historical Provider ENDOSCOPY PROCEDURES Jennifer l Result from Last 3 Months or Most Recently Relevant to Health Maintenance [place] [address] Care Teams Casing Tier Relationship Specialty Start Date End Date Amber Haskins NP [address] [place] [address] PCP - General Family Medicine 01/20/25
--- OUTSIDE RECORDS SUMMARY | 2025-03-10 15:57 | XMS_ITS | Clinical Summary ---
Author Organization [facility] [place] Anastacio pineda Jamilah Address [address] [place] [address] Care Team Providers Care Filter Press Tender Head Name Role Phone Nora Muir MD Primary Care Provider Allergies Active Allergy Reactions Criticality Noted Date Comments Hydrocodone-Acetaminophen Shortness of Breath/Wheezing High 02/14/2024 Medications apixaban (Eliquis) 5 mg tablet Take 5 mg by mouth 2 times daily. Active omeprazole (PriLOSEC) 20 mg Capsule, Delayed Release(E.C.) Take 20 mg by mouth daily. 09/08/2024 Active Active Problems No known active problems Encounters Date Type Department Care Team Description 02/20/2025 External Device Data STL ABSTRACTION Provider, Abstract 01/24/2025 Telephone [facility] [place] Oncology and Hematology [address] [place] [phone] Miles Guillen MD Medication Review 01/13/2025 External Device Data STL ABSTRACTION Provider, Abstract 01/12/2025 External Device Data STL ABSTRACTION Provider, Abstract 01/10/2025 Telephone [facility] [place] Oncology formerly [facility] Hematology [address] [place] [phone] Miles Guillen MD Kidney Concerns 01/02/2025 External Device Data STL ABSTRACTION Provider, Abstract from Last 3 Months Family History Medical History Relation Name Comments Heart Disease Father Relation Name Status Comments Brother Alive Daughter Alive Father Mother Sister 1 Sister 2 Alive Social History Tobacco Use Types Packs/Day Years Used Date Smoking Tobacco: Former Cigarettes Q uit: 1984 Smokeless Tobacco: Never Tobacco Cessation:Counseling Given: Not Answered Alcohol Use Standard Drinks/Week Comments Not Currently 0 (1 standard drink = 0.6 oz pur e alcohol) Sex and Gender Information Value Date Recorded Sex Assigned at Male 09/21/2024 7:08 PM ESCROW REPRESENTATIVE Legal Sex Male 2:19 PM CDT Gender Identity Male 09/21/2024 7:08 PM ESCROW REPRESENTATIVE Sexual Orientation Straight 09/21/2024 7: 08 PM ESCROW REPRESENTATIVE Last Filed Vital Signs Vital Sign Reading Time Taken Comments Blood Pressure 124/77 09/20/2024 1:06 PM ESCROW REPRESENTATIVE Pulse 88 09/20/2024 1:06 PM ESCROW REPRESENTATIVE Temperature 36.9 C (98.4 F) 09/20/2024 1:06 PM ESCROW REPRESENTATIVE Respiratory Rate 16 09/20/2024 1:06 PM ESCROW REPRESENTATIVE Oxygen Saturation 93% 09/20/2024 1:06 PM ESCROW REPRESENTATIVE Inhaled Oxygen Concentration - - Weight 77.6 kg (171 lb) 09/20/2024 1:06 PM ESCROW REPRESENTATIVE Height 168.9 cm (5' 6.5 ) 02/14/2024 2:40 PM CDT Body Mass Index 27.19 02/14/2024 2:40 PM CDT Plan of Treatment Upcoming Encounters Date Type Department Care Team (Late st Contact Info) Description 06/25/2025 10:00 AM CDT Office Visit [facility] [place] Oncology and Hematology [facility] [address] [facility] [address] [place] [address] Miles Guillen MD [address] [facility] [address] [place] [address] Health Maintenance Due Date Last Done Comments Pre-Diabetes and Diabetes Screening 1975 DTAP/TDAP/TD VACCINES (1 - Tdap) 1994 HEPATITIS B VACCINES (1 of 3 - 19+ 3-dose series) 08/08 COLORECTAL SCREENING 2020 Colorectal Cancer Screening 2020 FIT-DNA Q 3 years 2020 FIT/FOBT Q 1 year 2020 Flex Sig/CT Colonography Q 5 years 2020 INFLUENZA VACCINE (#1) 2024 Insurance [employer] [facility] [id number] Care Teams Filter Press Tender Head Relationship Specialty Start Date End Date Nora Muir MD PCP - General Internal Medicine 02/14/24
--- OUTSIDE RECORDS SUMMARY | 2025-03-10 15:57 | XMS_ITS | Referral Summary ---
Author Organization [facility] Address [address] [place] [address] Care Team Providers Care Bank Accountant Name Role Phone Amber Haskins NP Primary Care Provider Encounters Date Type Department Care Team Description 01/20/2025 1:25 PM CDT - 01/20/2025 1:56 PM CDT Emergency [address] [address] Stage 3b chronic kidney disease (CKD) (HCC) (Primary Dx); Prediabetes Discharge Disposition: Discharge to home or self care from Last 3 Months Allergies Active Allergy Reactions Criticality Noted Date Comments Hydrocodone-Acetaminophen Shortness of breath High 0 01/20/2025 Medications metFORMIN (GLUCOPHAGE) 500 mg tablet Take 1 tablet (500 mg total) by mouth 2 (two) times a day with meals 120 tablet 01/20/2025 Active Social History Tobacco Use Types Packs/Day Years Used Date Smoking Tobacco: Never Assessed Personal Safety Answer Date Recorded Have you ever been in or are you currently in a harmful physical or emotional relationship or is someone making you feel afraid or unsafe? Denies 01/20/2025 Sex and Gender Information Value Date Recorded Sex Assigned at Not on file Legal Sex Male 9:27 PM COKE DRAWER HAND Gender Identity Not on file Sexual Orientation [...] Mass Index - - Plan of Treatment Not on file Procedures Procedure Name Priority Date/Time Associated Diagnosis [...] 11:15 AM CDT COLONOSCOPY 01/16/2016 12:00 AM COKE DRAWER HAND from Last 3 Months or Most Recently [...] Layton Bryan D.O. PS T: Report ID: [id number] Reading Location: [place] [address] Procedure Note Layton Bryan, DO - 01/20/2025 EXAM DESCRIPTION: CT ABDOMEN [...] Layton Bryan D.O. PS T: Report ID: [id number] Reading Location: [place] [address] PROCEDURES Final Resu lt * (ABNORMAL) Urinalysis reflex to microscopic and culture Urine (01/20/2025 11:16 AM CDT) Color, ur Straw Yellow Clarity, ur Clear Clear EST[facility] Specific gravity, ur 1.008 1.003 - 1.030 ESTEVAN pH, urine 5.5 [facility] Comment: Interpretive Data U rine pH is affected by diet, medications, systemic acid-base disturbances, and renal tubular function. pH may affect urinary stone formation. For example, urine pH below 6.0 may help reduce the tendency for calcium phosphate stones and pH greater than 6.0 may reduce the tendency for uric acid stone formation. Source: [employer] Current Interpretive Data was last revised on 2017 Protein, ur ql Negative Negative [facility] Glucose, ur ql Negative Negative [facility] Ketones, ur Negative Negative [facility] Bilirubin, ur Negative Negative [facility] Blood, ur Negative Negative [facility] Urobilinogen, ur <2.0 <2.0 mg/dL [facility] Nitrite, ur Negative Negative [facility] Leukocyte esterase, ur 2+(A) Negative [facility] UA reflex comment Reflex to microscopic UA will be performed. EST[facility]AN Urine 01/20/2025 11:1 6 AM CDT 01/20/2025 11:20 AM CDT Shar[facility] MICROBIOLOGY - GENERAL O RDERABLES Final Result Performing Organization Address [facility] de Phone Number ESTEVAN [address] [address] * (ABNORMAL) Urinalysis, microscopic only (01/20/2025 11:16 AM CDT) WBC, ur 0-5 0 - 5 /HPF RBC, ur 0-2 0 - 2 /HPF [facility] Mucous, ur Present(A) [facility] Culture Reflex Comment Reflex conditions for urine culture (WBC >10) not met. [facility] Urine 01/20/2025 11:1 6 AM CDT 01/20/2025 11:20 AM CDT us [facility] URINE ORDERABLES Final R esult Performing Organization Address [facility] de Phone Number ESTEVAN [address] [address] * (ABNORMAL) eGFR (01/20/2025 11:15 AM CDT) [...] of Race in Diagnosing Kidney Disease, JASN 2020). The CKD-EPI equation should not be used for patients with unstable renal function and has not been validated in children and those over 70. Current interpretive data was last reviewed 2021. Blood 01/20/2025 11:1 5 AM CDT 01/20/2025 11:20 AM CDT us [facility] BLOOD ORDERABLES Final R esult [facility] [address] [facility] [place] [address] * (ABNORMAL) Differential, auto (01/20/2025 11:15 AM CDT) Pathologist [facility] Neutrophil abs 4.7 1.5 - 6.5 K/cumm Imm gran abs 0.1 0.0 - 0.1 K/cumm [facility] Lymphocyte abs 1.6 0.8 - 3.3 K/cumm [facility] Monocyte abs 0.6 0.2 - 0.8 K/cumm [facility] Eosinophil abs 0.6(H) 0.0 - 0.5 K/cumm [facility] Basophil abs 0.1 0.0 - 0.1 K/cumm [facility] Neutrophil pct 61.9 % [facility] Comment: Interpretive Data Percent cell count reference ranges are not reported, since discordance with absolute values may lead to misinterpretation of CBC data. Current Interpretive Data was last revised on 2018. Imm gran pct 0.7 % [facility] Comment: Interpretive Data Percent cell count reference ranges are not reported, since discordance with absolute values may lead to misinterpretation of CBC data. Current Interpretive Data was last revised on 2018. Lymphocyte pct 20.9 % [facility] Comment: Interpretive Data Percent cell count reference ranges are not reported, since discordance with absolute values may lead to misinterpretation of CBC data. Current Interpretive Data was last revised on 2018. Monocyte pct 8.1 % [facility] Comment: Interpretive Data Percent cell count reference ranges are not reported, since discordance with absolute values may lead to misinterpretation of CBC data. Current Interpretive Data was last revised on 2018. Eosinophil pct 7.7 % [facility] Comment: Interpretive Data Percent cell count reference ranges are not reported, since discordance with absolute values may lead to misinterpretation of CBC data. Current Interpretive Data was last revised on 2018. Basophil pct 0.7 % [facility] Comment: Interpretive Data Percent cell count reference ranges are not reported, since discordance with absolute values may lead to misinterpretation of CBC data. Current Interpretive Data was last revised on 2018. Blood 01/20/2025 11:1 5 AM CDT 01/20/2025 11:20 AM CDT Sharmin [facility] BLOOD ORDERABLES Final R esult Performing Organization Address City/[facility]/ZIP Co de Phone Number [address] [place] [address] * Thyroid Function Carriere (01/20/2025 11:15 AM CDT) [facility] TSH 2.94 0.30 - 4.20 mcIUnit/mL Blood 01/20/2025 11:1 5 AM CDT 01/20/2025 11:20 AM CDT Sharmin [facility] BLOOD ORDERABLES Final R esult Performing Organization Address City/[facility]/[place] Co de Phone Number [address] [address] * (ABNORMAL) CBC with auto differential (01/20/2025 11:15 AM CDT) [facility] WBC 7.6 3.8 - 9.9 K/cumm Hgb 12.5(L) 13.0 - 17.5 g/dL [facility] Hct 36.0(L) 38.9 - 50.3 % [facility] Plt 267 150 - 400 K/cumm [facility] MPV 9.3 9.1 - 12.3 fL [facility] RBC 3.97(L) 4.30 - 5.80 M/cumm [facility] MCV 90.7 81.3 - 96.4 fL [facility] MCH 31.5 27.1 - 33.3 pg [facility] MCHC 34.7 32.3 - 35.7 g/dL [facility] RDW CV 11.8 11.1 - 14.9 % [facility] RDW SD 39.3 35.7 - 48.1 fL [facility] NRBC abs 0.00 0.00 - 0.01 K/cumm [facility] Blood 01/20/2025 11:1 5 AM CDT 01/20/2025 11:20 AM CDT Result [facility] Sharmin WALKER LAB BLOOD ORDERABLES Final R esult Performing Organization Address City/[facility]/ZIP Co de Phone Number [address] [place] [address] * Magnesium (01/20/2025 11:15 AM CDT) Magnesium 1.9 1.4 - 2.5 mg/dL Blood 01/20/2025 11:1 5 AM CDT 01/20/2025 11:20 AM CDT Result [facility] Sharmin WALKER LAB BLOOD ORDERABLES Final R [facility] Performing Organization Address City/[facility]/[place] Co de Phone Number [address] [place] [address] * (ABNORMAL) Hemoglobin A1c (01/20/2025 11:15 AM CDT) Hgb A1C 5.9(H) 4.0 - 5.6 % Estimated Average Glucose 123 mg/dL [facility] Comment: The ADA recommends reporting an estimated Average Glucose (eAG) with all Hemoglobin A1c results using the equation derived from a study of 507 normal and diabetic adults. Minority populations were underrepresented and children were not included. (Diabetes Care 31:0810-1413, 2008). The eAG is not equivalent to a fasting glucose. Blood 01/20/2025 11:1 5 AM CDT 01/20/2025 11:20 AM CDT Result [facility] Sharmin WALKER LAB BLOOD ORDERABLES Final R esult Performing Organization Address [facility] Co de Phone Number [facility] [address] [facility] Department [place] [address] * (ABNORMAL) Comprehensive metabolic panel (01/20/2025 11:15 AM CDT) Sodium 138 135 - 145 mmol/L Potassium, pl 4.5 3.3 - 4.9 mmol/L [facility] Chloride 102 97 - 110 mmol/L [facility] CO2 24 22 - 32 mmol/L [facility] Anion gap 12 2 - 15 mmol/L [facility] BUN 35(H) 6 - 25 mg/dL [facility] Creatinine 1.71(H) 0.80 - 1.30 mg/dL [facility] Glucose 103 70 - 199 mg/dL [facility] Comment: Interpretive Data Fasting glucose [...] 2022. Calcium 9.6 8.5 - 10.3 mg/dL [facility] Bilirubin, total 0.4 0.1 - 1.2 mg/dL [facility] Protein, pl 7.8 6.5 - 8.5 g/dL [facility] Albumin 4.3 3.5 - 5.0 g/dL [facility] Alk phos 89 40 - 130 Units/L [facility] ALT 136(H) 7 - 55 Units/L [facility] AST 86(H) 10 - 50 Units/L [facility] Blood 01/20/2025 11:1 5 AM CDT 01/20/2025 11:20 AM CDT us Sharmin [facility] BLOOD ORDERABLES Final R esult Performing Organization Address [facility]/ZIP Co de Phone Number ESTEVAN [facility] [address] [facility] [place] [address] * COLONOSCOPY (01/16/2016 12:00 AM COKE DRAWER HAND) Anatomical Region Laterality Modality Other Narrative 01/16/2016 12:00 AM COKE DRAWER HAND Ordered by an unspecified provider. Procedure Note ProviderSony MD - 01/16/2016 12:00 AM CST PROCEDURE REPORT Patient: GALO WHITMAN. Account: [id number] Room No: : 1975 Patient Type: SDS Attend.: Sloan Mcclellan M.D. Admit Date: 01/16/2016 Dict.: Sloan Mccllelan M.D. Disch. Date: 01/16/2016 NAME OF PROCEDURE: [...] Sloan Mcclellan MD On 01/17/2016 11:30 AM COKE DRAWER HAND Sloan Mcclellan M.D. DR/laura TD: 01/17/2016 08:04 CC: Jamin Melo MD us Historical Provider ENDOSCOPY PROCEDURES Jennifer l Result from Last 3 Months or Most Recently Relevant to Health Maintenance Insurance [facility] CHOICE PLUS Care Teams Bank Accountant Relationship Specialty Start Date End Date Amber Haskins NP [address] [place] [phone] PCP - General Family Medicine 01/20/25
[2025-03-11 05:58] LABS: Protein, Total 7.4 g/dL (6.1-8.1)
[2025-03-11 06:33] LABS: Creatinine, Random Urine 91 mg/dL (20-320); Total Prot/Creat ratio mg/mg 0.121 (0.025-0.148); Total Protein/Creatinine Ratio 121 mg/g creat (25-148)
[2025-03-12 16:43] LABS: Anti Glomerular Basement Memb <1.0 AI
[2025-03-13 08:14] LABS: Albumin 4.6 g/dL (3.8-4.8); Alpha 1 Globulin 0.3 g/dL (0.2-0.3); Alpha 2 Globulin 0.6 g/dL (0.5-0.9); Beta 1 Globulin 0.4 g/dL (0.4-0.6); Gamma Globulin 1.1 g/dL (0.8-1.7)
[2025-03-13 15:49] LABS: ANCA Screen NEGATIVE (NEGATIVE)
== END 2025-03-10 08:33 | disposition home or self-care (01) ==
LOC: ANHLAB 08:34
PROVIDERS: PCP Internal Medicine Nephrology; Visit Provider Internal Medicine Nephrology
DX: N18.32 Chronic kidney disease, stage 3b (principal)
CPT/HCPCS: 36415; 80069; 82570; 83520; 84155; 84156; 84165; 84166; 86036; 86038; 86039; 86160; 86225

== ENCOUNTER 2025-06-25 09:45 | Outpatient (CLI) | payer OTHER, SELFPAY ==
[2025-06-25 10:03] LABS: Hematocrit 39.4 % (42.0-52.0); Hemoglobin 13.8 g/dL (14.0-18.0); Immature Granulocyte Percent A 0.4 % (0-0.5); Lymphocytes Absolute Auto 1.56 K/mm3 (0.9-3.2); Mean Corpuscular HGB Conc 35.0 g/dl (32-36); Mean Corpuscular Hemoglobin 31.5 pg (26-34); Mean Corpuscular Volume 90.0 fl (80-100); Nucleated Red Blood Cells Absolute Auto 0.000 K/mm3 (0.0-0.012); Nucleated Red Blood Cells Perc 0.0 % (0.0-0.2); Platelet Count Result 259 k/mm3 (150-375); Red Blood Count 4.38 M/mm3 (4.6-6.20); White Blood Count 7.0 K/mm3 (4.5-10.0)
[2025-06-25 10:07] LABS: Blood Urea Nitrogen 22 mg/dL (8-26); Carbon Dioxide 27 mmol/L (22-30); Chloride 101 mmol/L (98-109); Estimated Glomerular Filt Rate 50; Glucose 96 mg/dL (70-105); Ionized Calcium (POC) 1.23 mmol/L (1.11-1.31); Potassium 4.2 mmol/L (3.5-4.9); Sodium 139 mmol/L (138-146)
--- OUTSIDE RECORDS SUMMARY | 2025-06-25 10:35 | XMS_ITS | Encounter Summary ---
Author Organization [facility] Address [address] [place] [address] Care Team Providers Care Field Engineer Name Role Phone Nora Muir MD Primary Care Provider Encounter Details Date Type Department Care Team (Late st Contact Info) Description 06/25/2025 10:00 AM CDT Office Visit [facility] Oncology and Hematology - [place] [address] [facility] [address] [place] [address] Miles Guillen MD [address] [facility] [address] [place] [address] Chronic anemia (Primary Dx) Social History Tobacco Use Types Packs/Day Years Used Date Smoking Tobacco: Former Cigarettes Q uit: 1985 Smokeless Tobacco: Never Tobacco Cessation:Counseling Given: Not Answered Alcohol Use Standard Drinks/Week Comments Not Currently 0 (1 standard drink = 0.6 oz pur e alcohol) Sex and Gender Information Value Date Recorded Sex Assigned at Male 09/21/2024 7:08 PM MICROBIOLOGICAL LAB TECHNICIAN Legal Sex Male 2:19 PM CDT Gender Identity Male 09/21/2024 7:08 PM MICROBIOLOGICAL LAB TECHNICIAN Sexual Orientation Straight 09/21/2024 7: 08 PM MICROBIOLOGICAL LAB TECHNICIAN documented as of this encounter Last Filed Vital Signs Vital Sign Reading Time Taken Comments Blood Pressure 137/67 06/25/2025 10:12 AM CDT Pulse 76 06/25/2025 10:12 AM CDT Temperature 36.2 C (97.1 F) 06/25/2025 10:12 AM CDT Respiratory Rate 16 06/25/2025 10:12 AM CDT Oxygen Saturation 96% 06/25/2025 10:12 AM CDT Inhaled Oxygen Concentration - - Weight 76.2 kg (168 lb) 06/25/2025 10:12 AM CDT Height - - Body Mass Index 26.71 02/14/2024 2:40 PM CDT documented in this encounter Plan of Treatment Upcoming Encounters Date Type Department Care Team (Late st Contact Info) Description 03/25/2026 10:00 AM CDT Office Visit [facility] Oncology and Hematology - [place] [address] [facility] [address] [place] [address] Miles Guillen MD [address] [facility] [address] [place] [address] Scheduled Orders Name Type Priority Associated Diagnoses Orde r Schedule CBC WITH DIFFERENTIAL Lab Stat Chronic anemia Expected: 03/25/2026, Expires: 06/23/2026 COMPREHENSIVE METABOLIC PANEL Lab Stat Chronic anemia Expected: 03/25/2026, Expires: 06/23/2026 documented as of this encounter Visit Diagnoses Diagnosis Chronic anemia- Primary Anemia, unspecified documented in this encounter Care Teams Field Engineer Relationship Specialty Start Date End Date Nora Muir MD PCP - General Internal Medicine 02/14/24 documented as of this encounter
--- OUTSIDE RECORDS SUMMARY | 2025-06-25 10:35 | XMS_ITS | Clinical Summary ---
Author Organization [facility] Address [address] [place] [address] Care Team Providers Care Reproduction Technician Name Role Phone Amber Haskins NP Primary [...] on file Legal Sex Male 9:27 PM BLEACH MIXER Gender Identity Not on file Sexual Orientation [...] of 2 - PCV) 1994 Influenza Vaccine (#1) 2025 09/01/2014 Colon Cancer Screening-Colonoscopy 01/15/20262015 DTaP/Tdap/Td Vaccine (2 - Td or Tdap) 06/08/203011/2019 Procedures Procedure Name Priority Date/Time Associated Diagnosis Comments COLONOSCOPY 01/16/2016 12:00 AM BLEACH MIXER from Last 3 Months or Most Recently Relevant to Health Maintenance Results * COLONOSCOPY (01/16/2016 12:00 AM BLEACH MIXER) Anatomical Region Laterality Modality Other Narrative 01/16/2016 12:00 AM BLEACH MIXER Ordered by an unspecified provider. Procedure Note ProviderSony MD - 01/16/2016 12:00 AM CST PROCEDURE REPORT Patient: GALO WHITMAN Account: [id number] Room No: : 1975 Patient Type: [facility] Attend.: Sloan Mcclellan M.D. Admit Date: [...] Sloan Mcclellan MD On 01/17/2016 11:30 AM BLEACH MIXER Sloan Mcclellan M.D. /laura TD: 01/17/2016 08:04 CC: Jamin Melo MD us Historical Provider ENDOSCOPY PROCEDURES Jennifer l Result from Last 3 Months or Most Recently Relevant to Health Maintenance Insurance [id number] [place] [address] Care Teams Reproduction Technician Relationship Specialty Start Date End Date Amber Haskins NP [address] [place] [address] PCP - General Family Medicine 01/20/25
--- OUTSIDE RECORDS SUMMARY | 2025-06-25 10:35 | XMS_ITS | Clinical Summary ---
Author Organization [facility] Anastacio Merlos Address [address] [facility] [place] [address] Care Team Providers Care Ironing Worker Name Role Phone Nora Muir MD Primary [...] Encounters Date Type Department Care Team Description 06/25/2025 10:00 AM CDT Office Visit [facility] Oncology and Hematology - [place] [address] [facility] [address] [place] [address] Miles Guillen MD Chronic anemia (Primary Dx) 03/27/2025 External Device Data STL ABSTRACTION Provider, Abstract [...] Sex Assigned at Male 09/21/2024 7:08 PM SPRING LAYER Legal Sex Male 2:19 PM CDT Gender Identity Male 09/21/2024 7:08 PM SPRING LAYER Sexual Orientation Straight 09/21/2024 7: 08 PM SPRING LAYER Last Filed Vital Signs Vital Sign Reading Time Taken Comments Blood Pressure 137/67 06/25/2025 10:12 AM CDT Pulse 76 06/25/2025 10:12 AM CDT Temperature 36.2 C (97.1 F) 06/25/2025 10:12 AM CDT Respiratory Rate 16 06/25/2025 10:12 AM CDT Oxygen Saturation 96% 06/25/2025 10:12 AM CDT Inhaled Oxygen Concentration - - Weight 76.2 kg (168 lb) 06/25/2025 10:12 AM CDT Height 168.9 cm (5' 6.5) 02/14/2024 2:40 PM CDT Body Mass Index 26.71 02/14/2024 2:40 PM CDT Plan of Treatment Upcoming Encounters Date Type Department Care Team (Late st Contact Info) Description 03/25/2026 10:00 AM CDT Office Visit [facility] Oncology and Hematology - [place] [address] [place] [address] [facility] [address] [place] [address] Miles Guillen MD [address] [facility] [address] [place] [address] Health Maintenance Due Date Last Done Comments Pre-Diabetes and Diabetes Screening 1975 HEPATITIS B VACCINES (1 of 3 - 19+ 3-dose series) 08/08 FIT-DNA Q 3 years 2020 FIT/FOBT Q 1 year 2020 Flex Sig/CT Colonography Q 5 years 2020 Preventative Visit- Commercial 11/08/2024 INFLUENZA VACCINE (#1) 2025 09/01/2014 COLORECTAL SCREENING 01/15/2026 01/16/2016 Colorectal Cancer Screening 01/15/2026 DTAP/TDAP/TD VACCINES (2 - Td or Tdap) 06/08/2030 Abdominal Aortic Aneurysm (AAA) Screening Completed 01/20/2025 Insurance [facility] [id number] Member Subscriber Plan / Payer (Ef fective 2024-Present) Name:Galo Song Relation to Subscriber:Self Name:Galo Song Payer ID:[id number] ([facility]) Type:HMO Address: [facility] [id number] OPEN ACCESS HMO Member Subscriber Plan / Payer ( fective 2025-Present) Name:Galo Song Relation to Subscriber:Self Name:Galo Song Payer ID:Not on file Type:[employer] Address: [facility] [address] [place] [address] Care Teams Ironing Worker Relationship Specialty Start Date End Date Nora Muir MD PCP - General Internal Medicine 02/14/24
[2025-06-25 17:44] LABS: Alanine Aminotransferase 33 U/L (6-50); Albumin Level 4.5 g/dL (3.5-5.1); Alkaline Phosphatase 67 U/L (38-126); Anion Gap 8 mmol/L (4-12); Aspartate Amino Transferase 66 U/L (17-59); Bilirubin,Total 0.7 mg/dL (0.2-1.3); Blood Urea Nitrogen 22 mg/dL (9-20); Calcium 9.7 mg/dL (8.4-10.2); Carbon Dioxide 27 mmol/L (22-30); Chloride 102 mmol/L (98-107); Estimated Glomerular Filt Rate 56; Glucose 92 mg/dL (65-110); Potassium 4.4 mmol/L (3.4-5.0); Sodium 137 mmol/L (137-145); Total Protein 7.9 g/dL (6.3-8.2)
== END 2025-06-25 09:46 | disposition home or self-care (01) ==
LOC: ANHLAB 09:48
PROVIDERS: Visit Provider Internal Medicine Hematology & Oncology
DX: D64.9 Anemia, unspecified (principal)
CPT/HCPCS: 36415; 80047; 80053; 85025

== ENCOUNTER 2025-07-21 09:33 | Outpatient (CLI) | payer OTHER, SELFPAY ==
--- OUTSIDE RECORDS SUMMARY | 2025-07-21 09:37 | XMS_ITS | Clinical Summary ---
Author Organization [facility] Anastacio pineda Jamilah Address [address] [place] [address] Care Team Providers Care Bilingual Loan Processor Name Role Phone Nora Muir MD Primary [...] Encounters Date Type Department Care Team Description 06/26/2025 External Device Data STL ABSTRACTION Provider, Abstract 06/26/2025 Orders Only [facility] Oncology and Hematology - [place] [address] [place] [address] Miles Guillen MD 06/25/2025 10:00 AM CDT Office Visit [facility] Oncology and Hematology - [place] [address] [place] [address] Miles Guillen MD Chronic anemia (Primary Dx) 06/25/2025 Orders Only [facility] Oncology and Hematology [place] [address] [place] [address] Miles Guillen MD from Last 3 Months Family History Medical [...] Sex Assigned at Male 09/21/2024 7:08 PM FIRE LOSS PREVENTION ENGINEER Legal Sex Male 2:19 PM CDT Gender Identity Male 09/21/2024 7:08 PM FIRE LOSS PREVENTION ENGINEER Sexual Orientation Straight 09/21/2024 7: 08 PM FIRE LOSS PREVENTION ENGINEER Last Filed Vital Signs Vital Sign Reading [...] Description 03/25/2026 10:00 AM CDT Office Visit [facility] Oncology and Hematology - [place] [address] [facility] [address] [place] [address] Miles Guillen MD [address] [facility] [address] [place] [address] Health Maintenance Due Date Last Done Comments Pre-Diabetes and Diabetes Screening 1975 HEPATITIS B VACCINES (1 of 3 - 19+ 3-dose series) 08/08 FIT-DNA Q 3 years 2020 FIT/FOBT Q 1 year 2020 Flex Sig/CT Colonography Q 5 years 2020 INFLUENZA VACCINE (#1) 2025 09/01/2014 COLORECTAL SCREENING 01/15/2026 01/16/2016 Colorectal Cancer Screening 01/15/2026 DTAP/TDAP/TD VACCINES (2 - Td or Tdap) 06/08/2030 Abdominal Aortic Aneurysm (AAA) Screening Completed 01/20/2025 Procedures Procedure Name Priority Date/Time Associated Diagnosis Comments BASIC METABOLIC PANEL Routine 06/25/2025 2:32 PM CDT CBC WITH AUTODIFFERENTIAL Routine 2024 2:31 PM CDT COMPREHENSIVE METABOLIC PANEL Routine 06/25/2025 10:36 AM CDT from Last 3 Months Results * BASIC METABOLIC PANEL (06/25/2025 2:32 PM CDT) Blood us Miles Guillen MD CHEMISTRY ORDERABLES Final Resu lt * CBC WITH AUTODIFFERENTIAL (06/25/2025 2:31 PM CDT) Blood us Miles Guillen MD HEMATOLOGY ORDERABLES Final Res ult * COMPREHENSIVE METABOLIC PANEL (06/25/2025 10:36 AM CDT) Blood us Miles Guillen MD CHEMISTRY ORDERABLES Final Resu lt from Last 3 Months Insurance [employer] [facility] [id number] [place] [address] OPEN ACCESS HMO Care Teams Bilingual Loan Processor Relationship Specialty Start Date End Date Nora Muir MD PCP - General Internal Medicine 02/14/24
--- OUTSIDE RECORDS SUMMARY | 2025-07-21 09:37 | XMS_ITS | Clinical Summary ---
Author Organization [facility] Address [address] [place] [address] Care Team Providers Care Apparatus Cleaner Name Role Phone Amber Haskins NP Primary [...] on file Legal Sex Male 9:27 PM CARD SELLER Gender Identity Not on file Sexual Orientation [...] Associated Diagnosis Comments COLONOSCOPY 01/16/2016 12:00 AM CARD SELLER from Last 3 Months or Most Recently Relevant to Health Maintenance Results * COLONOSCOPY (01/16/2016 12:00 AM CARD SELLER) Anatomical Region Laterality Modality Other Narrative 01/16/2016 12:00 AM CARD SELLER Ordered by an unspecified provider. Procedure Note ProviderSony MD - 01/16/2016 12:00 AM CST PROCEDURE REPORT Patient: GALO WHITMAN Account: [id number] Room No: : 1975 Patient Type: [facility] Attend.: Sloan Mcclellan M.D. Admit Date: 01/16/2016 [...] Sloan Mcclellan MD On 01/17/2016 11:30 AM CARD SELLER Sloan Mcclellan M.D. /laura TD: 01/17/2016 08:04 CC: Jamin Melo MD us Historical Provider ENDOSCOPY PROCEDURES Jennifer l Result from Last 3 Months or Most Recently Relevant to Health Maintenance Insurance [id number] CHOICE PLUS Care Teams Apparatus Cleaner Relationship Specialty Start Date End Date Amber Haskins NP [address] [place] [address] PCP - General Family Medicine 01/20/25
[2025-07-21 10:42] LABS: Albumin Level 4.3 g/dL (3.5-5.1); Anion Gap 7 mmol/L (4-12); Blood Urea Nitrogen 18 mg/dL (9-20); Calcium 8.7 mg/dL (8.4-10.2); Carbon Dioxide 26 mmol/L (22-30); Chloride 103 mmol/L (98-107); Estimated Glomerular Filt Rate > 60; Glucose 94 mg/dL (65-110); Potassium 4.0 mmol/L (3.4-5.0); Sodium 136 mmol/L (137-145)
[2025-07-21 11:15] LABS: Parathyroid Intact 56.0 pg/mL (14.5-75.2)
[2025-07-21 12:19] LABS: Total Protein Urine Random 8 mg/dL; Ur Ttl Prot Creatinine Ratio 0.05 mg/mg (0-0.20)
== END 2025-07-21 09:34 | disposition home or self-care (01) ==
PROVIDERS: PCP Internal Medicine; Visit Provider Internal Medicine Nephrology
DX: N18.32 Chronic kidney disease, stage 3b (principal)
CPT/HCPCS: 36415; 80069; 82306; 82570; 83970; 84156

== ENCOUNTER 2025-10-02 15:25 | Emergency (ER) | payer OTHER, SELFPAY ==
--- NOTE | ~2025-10-02 | XR_ITS ---
EXAMINATION: XR finger 1st LT min 2V, 10/02/2025 16:42 EXPORT FREIGHT CLERK HISTORY: laceration COMPARISON: No comparisons available. Findings: No acute fracture or malalignment. Moderate degenerative changes Soft tissues unremarkable. Impression: No acute fracture or malalignment. Reviewed, dictated and finalized at location P. RT FREIGHT CLERK Impression: No acute fracture or malalignment.
[2025-10-02 15:35] VITALS: BP 120/82; PULSE 96; RESP 20; TEMP 36.5; O2SAT 96
--- NOTE | 2025-10-02 16:38 | ED.WOUNDLAC ---
HPI - Wound/Laceration General Chief Complaint: Wound/Laceration <Sharmin Jimenes PA-C - Last Filed: 10/04/25 17:11> Stated Complaint: L THUMB LACERATION, ON THINNERS,BLEEDING CONTROLL <Sharmin Jimenes PA-C - Last Filed: 10/04/25 17:11> Time Seen by Provider: 10/02/25 16:38 <Sharmin Jimenes PA-C - Last Filed: 10/04/25 17:11> Focused HPI: This is a 50 year old male that presents to the ER for laceration to the left first finger. Reports cut his finger with a razor. Unsure of last tetanus vaccination GENERAL: Well-appearing, well-nourished, and in no acute distress. HEAD: Normocephalic, atraumatic. CHEST: No respiratory distress. HEART: Regular rate NEURO: ?Alert and oriented x3. Patient screened in triage and initial orders placed.? ?Additional care and disposition to be based upon?diagnostic testing and treatment. <Sharmin Jimenes PA-C - Last Filed: 10/04/25 17:11> History of Present Illness HPI narrative: I agree with the above HPI. <Rosa Machuca APRN - Last Filed: 10/02/25 20:38> Related Data Home Medications: Home Medications ?Medication ?Instructions ?Recorded ?Confirmed ?Last Taken ?Type acetaminophen 500 mg capsule 500 mg PO Q6H PRN 02/14/25 07/25/25 Unknown History apixaban 5 mg tablet (Eliquis) 5 mg PO BID 02/14/25 07/25/25 Unknown History omeprazole 20 mg capsule,delayed 20 mg PO DAILY 02/14/25 07/25/25 Unknown History release <DELFINA Mello Last Filed: 10/04/25 17:11> Allergies/Adverse Reactions: Allergies Allergy/AdvReac Type Severity Reaction Status Date / Time hydrocodone Allergy Intermediate Blurry Verified 10/02/25 19:29 Vision amoxicillin Allergy Vomiting Verified 10/02/25 19:29 <DELFINA Mello Last Filed: 10/04/25 17:11> Review of Systems Review of Systems: All systems reviewed & are unremarkable except as noted in HPI and below <Rosa Machuca APRN - Last Filed: 10/02/25 20:38> [facility] Past Medical History Medical History: Medical History Prediabetes Renal insufficiency Hyperlipidemia Factor V deficiency Hypothyroidism Back pain GERD (gastroesophageal reflux disease) Arthritis Nocturia Asthma <Sharmin Jimenes PA-C - Last Filed: 10/04/25 17:11> Family History Family History: Family History Father Cerebrovascular accident Hypertension Sibling Blood coagulation disorder <Sharmin Jimenes PA-C - Last Filed: 10/04/25 17:11> Social History Social History: Social History Smoking status: Former smoker Alcohol intake: never Substance use: never <Sharmin Jimenes PA-C - Last Filed: 10/04/25 17:11> Exam Narrative: GENERAL: Well appearing, well-nourished, non-toxic, in no acute distress. HEAD: Normocephalic, atraumatic. NECK: Supple. No adenopathy, no masses. RESPIRATORY: Airway patent, respirations nonlabored. Clear to auscultation bilaterally, no rales, rhonchi, wheezing. CARDIOVASCULAR: Regular rate and rhythm without murmurs, rubs, or gallops. Peripheral pulses 2+ and equal bilaterally. ABDOMINAL: Soft, nontender, nondistended, no hepatosplenomegaly. Normoactive BS. MUSCULOSKELETAL: Moves all extremities. Strength/ROM intact without gross deformities. SKIN: Warm, dry, normal color. No rashes. NEURO: A&O X3. Speech clear. Cranial nerves II-XII intact. No ataxic movements. PSYCHIATRIC: Appropriate mood and affect. Normal interaction. <Rosa Machuca APRN - Last Filed: 10/02/25 20:38> Course Vital Signs Vital signs: Vital Signs Temperature 97.7 F 10/02/25 15:35 Pulse Rate 96 10/02/25 15:35 Respiratory Rate 20 10/02/25 15:35 Blood Pressure 120/82 10/02/25 15:35 Pulse Oximetry 96 10/02/25 15:35 Oxygen Delivery Room Air 10/02/25 15:35 Temperature 97.7 F 10/02/25 15:35 Pulse Rate 73 10/02/25 20:52 Respiratory Rate 16 10/02/25 20:52 Blood Pressure 109/74 10/02/25 20:52 Pulse Oximetry 98 10/02/25 20:52 Oxygen Delivery Room Air 10/02/25 15:35 <Sharmin Jimenes PA-C - Last Filed: 10/04/25 17:11> Vital Signs Temperature 97.7 F 10/02/25 15:35 Pulse Rate 96 10/02/25 15:35 Respiratory Rate 20 10/02/25 15:35 Blood Pressure 120/82 10/02/25 15:35 Pulse Oximetry 96 10/02/25 15:35 Oxygen Delivery Room Air 10/02/25 15:35 Temperature 97.7 F 10/02/25 15:35 Pulse Rate 73 10/02/25 20:52 Respiratory Rate 16 10/02/25 20:52 Blood Pressure 109/74 10/02/25 20:52 Pulse Oximetry 98 10/02/25 20:52 Oxygen Delivery Room Air 10/02/25 15:35 <Rosa Machuca APRN - Last Filed: 10/02/25 20:38> Procedures Laceration Laceration 1: Date: 10/02/25 <Rosa Machuca APRN - Last Filed: 10/02/25 20:38> Time: 20:32 <Rosa Machuca APRN - Last Filed: 10/02/25 20:38> Site: hand <Rosa Machuca APRN - Last Filed: 10/02/25 20:38> Side (If applicable): right <Rosa Machuca APRN - Last Filed: 10/02/25 20:38> Size (cm): 1.5 <Rosa Machuca APRN - Last Filed: 10/02/25 20:38> Description: flap <Rosa Machuca APRN - Last Filed: 10/02/25 20:38> Depth: simple, single layer and involves muscle layer <Rosa Machuca APRN - Last Filed: 10/02/25 20:38> Local Anesthetic: lidocaine 1% <Rosa Machuca APRN - Last Filed: 10/02/25 20:38> Amount of anesthesia used (mL): 8 <Rosa Machuca APRN - Last Filed: 10/02/25 20:38> Pre-repair: wound explored and irrigated extensively <Rosa Machuca APRN - Last Filed: 10/02/25 20:38> ====== Skin Level ======: Skin layer closed with: nylon <Rosa Machuca APRN - Last Filed: 10/02/25 20:38> Size (cm): 4-0 <Rosa Machuca APRN - Last Filed: 10/02/25 20:38> Number of sutures: 8 <Rosa Machuca APRN - Last Filed: 10/02/25 20:38> Technique: simple, interrupted <Rosa Machuca APRN - Last Filed: 10/02/25 20:38> ====== Subcutaneous Layer ======: ====== Muscle Layer ======: ====== Tendon Layer ======: MDM - Wound/Laceration MDM Narrative Medical decision making narrative: This is a 50 year old male that presents to the ER for laceration to the left first finger. Reports cut his finger with a razor. Unsure of last tetanus vaccination. Patient reports he has a history of factor 5 Leiden and takes Eliquis twice a day. He denies the need for pain medication at time of examination. Patient denies decreased range of motion. Labs Ordered: None necessary Imaging Ordered: Right finger x-ray Medications Ordered: Percocet x2 Results: Pt's finger x-ray indicates No acute fracture or malalignment. Moderate degenerative changes Soft tissues unremarkable. Diagnosis: R finger laceration MDM: Vital signs stable upon arrival. No other injuries besides laceration to right 1st digit finger. Patient's tetanus vaccine given today. No active bleeding upon my evaluation. X-ray negative for acute findings. Lidocaine without epi was used with adequate anesthesia. Laceration was repaired with 8 sutures without complications. Patient was given wound care instructions and advised to follow-up with primary care doctor in the next 10-14 days for suture removal. He was given reasons to return to the ED. All questions answered. Vital signs stable at time of discharge. Pt is unable to take NSAIDs d/t his blood thinner use, so he will be ordered a short course of Percocet. <Rosa Machuca APRN - Last Filed: 10/02/25 20:38> Differential Diagnosis Differential diagnosis: Likely laceration, abrasion and avulsion of skin <Rosa Machuca APRN - Last Filed: 10/02/25 20:38> Imaging Data Attestation: I personally reviewed and interpreted this imaging study as follows: <Rosa Machuca APRN - Last Filed: 10/02/25 20:38> Radiologist's impression: Impressions Finger X-Ray 10/02/25 16:57 Impression: No acute fracture or malalignment. <Rosa Machuca APRN - Last Filed: 10/02/25 20:38> Discharge Plan Discharge Clinical Impression: Laceration, Injury of right thumb <Sharmin Jimenes PA-C - Last Filed: 10/04/25 17:11> Patient Disposition: Home <DELFINA Mello Last Filed: 10/04/25 17:11> Condition: Stable <DELFINA Mello Last Filed: 10/04/25 17:11> Instructions: Antibiotic Form, Care For Your Stitches (ED), Laceration (ED) <DELFINA Mello Last Filed: 10/04/25 17:11> Additional Instructions: Please return to the ER with any worsening symptoms. Follow-up with primary care provider in 10-14 days for suture removal. Since you are unable to take NSAID you may take Percocet as needed for pain control. Please keep your thumb in the splint to help prevent excessive movement. Take all medications as prescribed, including regularly scheduled medications. <DELFINA Mello Last Filed: 10/04/25 17:11> Patient Language: Yakut <DELFINA Mello Last Filed: 10/04/25 17:11> Prescriptions: New oxycodone-acetaminophen [Percocet] 5-325 mg tablet 1 tablet PO Q6H PRN (Reason: pain) Qty: 10 0RF No Action Eliquis 5 mg tablet 5 mg PO BID omeprazole 20 mg capsule,delayed release(DR/EC) 20 mg PO DAILY acetaminophen 500 mg capsule 500 mg PO Q6H PRN <Sharmin Jimenes PA-C - Last Filed: 10/04/25 17:11> Follow-up/Referrals: PHYSICIAN,REFRIGERATING OILER [Primary Care Provider, Internal Medicine] <Sharmin Jimenes PA-C - Last Filed: 10/04/25 17:11> Stand Alone Forms: Work/School Release IP <Sharmin Jimenes PA-C - Last Filed: 10/04/25 17:11> Time of Disposition: 20:38 <Sharmin Jimenes PA-C - Last Filed: 10/04/25 17:11> 20:38 <Rosa Machuca APRN - Last Filed: 10/02/25 20:38>
--- NOTE | 2025-10-02 16:45 | PC.NURSE ---
Pts thumb bandaged up with gauze and tape. waiting for provider to see pt prior to unwrapping. according to pt, his thumb is cut almost all the way around. no pain medications wanted at this time
--- OUTSIDE RECORDS SUMMARY | 2025-10-02 17:04 | XMS_ITS | Clinical Summary ---
Author Organization [facility] Anastacio Machucadavid Address [address] [facility] [place] [address] Care Team Providers Care Data Security Analyst Name Role Phone Nora Muir MD Primary [...] Encounters Date Type Department Care Team Description 09/04/2025 External Device Data STL ABSTRACTION Provider, Abstract 07/25/2025 External Device Data STL ABSTRACTION Provider, Abstract from Last 3 Months Family History Medical History Relation Name Comments Heart Disease Father Relation Name Status Comments Brother Alive Daughter Alive Father Mother Sister 1 Sister 2 Alive Social History Tobacco Use Types Packs/Day Years Used Date Smoking Tobacco: Former Cigarettes 0 Q uit: 1985 Smokeless Tobacco: Never Tobacco Cessation:Counseling Given: Not Answered Alcohol Use Standard Drinks/Week Comments Not Currently 0 (1 standard drink = 0.6 oz pur e alcohol) Sex and Gender Information Value Date Recorded Sex Assigned at Male 09/21/2024 7:08 PM 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 Legal Sex Male 2:19 PM CDT Gender Identity Male 09/21/2024 7:08 PM 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 Sexual Orientation Straight 09/21/2024 7: 08 PM 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 Last Filed Vital Signs Vital Sign Reading [...] Description 03/25/2026 10:00 AM CDT Office Visit [facility] Oncology and Hematology - [place] [address] [facility] [address] [place] [address] Miles Guillen MD [address] [facility] [address] [place] [address] Health Maintenance Due Date Last Done Comments Pre-Diabetes and Diabetes Screening 1975 HEPATITIS B VACCINES (1 of 3 - 19+ 3-dose series) 08/08 FIT-DNA Q 3 years 2020 FIT/FOBT Q 1 year 2020 Flex Sig/CT Colonography Q 5 years 2020 INFLUENZA VACCINE (#1) 2025 09/01/2014 ZOSTER VACCINE (1 of 2) 2025 COLORECTAL SCREENING 01/15/2026 01/16/2016 Colorectal Cancer Screening 01/15/2026 DTAP/TDAP/TD VACCINES (2 - Td or Tdap) 06/08/2030 Abdominal Aortic Aneurysm (AAA) Screening Completed 01/20/2025 Insurance [id number] Member Subscriber Plan / Payer (Ef fective 2024-Present) Name:Galo Song Relation to Subscriber:Self Name:Galo Song Payer ID:[id number] (NAIC) Type:[facility] Address: [facility] [id number] OPEN ACCESS HMO Care Teams Data Security Analyst Relationship Specialty Start Date End Date Nora Muir MD PCP - General Internal Medicine 02/14/24
--- OUTSIDE RECORDS SUMMARY | 2025-10-02 17:04 | XMS_ITS | Clinical Summary ---
Author Organization 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 Gender Identity Not on file Sexual Orientation [...] Depression Screening 1975 Hepatitis C Screening 1975 Prostate Cancer Screening-PSA 1975 Hepatitis B Screening 1993 Regular Well Visit/Exam 18-64 1993 Pneumococcal vaccine <65 (1 of 2 - PCV) 1994 Influenza Vaccine (#1) 2025 09/01/2014 Zoster Vaccine (1 of 2) 2025 Colon Cancer Screening-Colonoscopy 01/15/20262015 DTaP/Tdap/Td Vaccine (2 - Td or Tdap) 06/08/203011/2019 Procedures Procedure Name Priority Date/Time Associated Diagnosis Comments COLONOSCOPY 01/16/2016 12:00 AM NON DESTRUCTIVE TESTING SUPERVISOR from Last 3 Months or Most Recently Relevant to Health Maintenance Results * COLONOSCOPY (01/16/2016 12:00 AM NON DESTRUCTIVE TESTING SUPERVISOR) Anatomical Region Laterality Modality Other Narrative 01/16/2016 12:00 AM NON DESTRUCTIVE TESTING SUPERVISOR Ordered by an unspecified provider. Procedure Note Provider, MD Sony - 01/16/2016 12:00 AM CST PROCEDURE REPORT Patient: GALO WHITMAN Account: [id number] Room No: : 1975 Patient Type: [facility] Attend.: Sloan Mcclellan M.D. Admit Date: [...] Sloan Mcclellan MD On 01/17/2016 11:30 AM NON DESTRUCTIVE TESTING SUPERVISOR Sloan Mcclellan M.D. /laura TD: 01/17/2016 08:04 CC: Jamin Melo MD us Historical Provider ENDOSCOPY PROCEDURES Jennifer l Result from Last 3 Months or Most Recently Relevant to Health Maintenance Insurance CHOICE PLUS [facility] HMO/PPO Address: [place] [address] Care Teams Line Analyst Relationship Specialty Start Date End Date Amber Haskins NP [address] [place] [id number] PCP - General Family Medicine 01/20/25
[2025-10-02] MEDS: TETANUS,DIPHTHERIA,AC PERTUSSIS ADULT (0.5 ML) BOOSTRIX IM (19:22)
--- OUTSIDE RECORDS SUMMARY | 2025-10-02 19:30 | XMS_ITS | Clinical Summary ---
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 Legal Sex Male 2:19 PM CDT Gender Identity Male 09/21/2024 7:08 PM WEBSPHERE COMMERCE DEVELOPER Sexual Orientation Straight 09/21/2024 7: 08 PM WEBSPHERE COMMERCE DEVELOPER Last Filed Vital Signs Vital Sign Reading [...] Description 03/25/2026 10:00 AM CDT Office Visit [facility] Oncology and Hematology - [place] [address] [facility] [address] [place] [address] Miles Guillen MD [address] [facility] [address] [place] [address] Health Maintenance Due Date Last [...] Aortic Aneurysm (AAA) Screening Completed 01/20/2025 Insurance [id number] Member Subscriber Plan / Payer (Ef fective 2024-Present) Name:Galo Song Relation to Subscriber:Self Name:Galo Song Payer ID:[id number] (NAIC) Type:[facility] Address: [facility] [id number] OPEN ACCESS HMO Care Teams Medical Tech Relationship Specialty Start Date End Date Nora Muir MD PCP - General Internal Medicine 02/14/24
--- OUTSIDE RECORDS SUMMARY | 2025-10-02 19:30 | XMS_ITS | Data Portability ---
Author Organization ID - [facility], Main Office Address [address] [place] [address] Assessment Encounter Date Assessment Date Assessment LastModified by Organization Details LastModified Time 08/16/2024 08/16/2024 48-year-old patient presents today with [...] this plan. [email or web address] Not available 08/18/2024 09:27:38 06/12/2025 06/12/2025 01/05/2025: BUN/Cr./GFR 34/2. [email or web address] Not available 06/11/2025 09:34:28 Plan of Treatment Reminders Order Date Submit Date Provider Last Modified By Organization Details Last Modified Time Details Appointments Physical/ Annual Wellness 15 2024 09:00A M Nora hendrix MD Not available Not available Not available Lab PSA, total, serum or plasma 2024 025 [facility], [address], [place], [address], 06/12/2025 11:48:23 lipid panel, serum 2024 025 [facility], [address], [address], [place], [address], 06/12/2025 11:36:26 CMP, serum or plasma 2024 025 R[facility], [address], [place], [address], 06/12/2025 11:36:31 CBC w/ auto diff 2024 025 [facility], [address], [place], [address], 06/12/2025 11:06:44 TSH + free T4, serum 2024 025 [email or web address] [facility], [address], [place], [address], 06/19/2025 09:21:22 vitamin D, 25-hydrox y, total, serum 2024 025 [email or web address] [facility], [address], [place], [address], 06/19/2025 09:21:23 urinalysi s complete, reflex culture 2024 025 [facility], [address] [facility], [place], [address], 01/11/2025 08:18:59 PSA, serum or plasma 2024 025 [facility], [address] [facility], [place], [address], 01/11/2025 08:18:59 renal function panel, serum 2024 025 [facility], [address] [facility], [place], [address], 01/08/2025 13:57:19 lipid panel, serum 2023 024 [facility] (Lab), [address] [place], [address], 06/13/2024 14:39:12 PSA, serum or plasma 2023 024 [facility] (Lab), [address] [place], [address], 06/28/2024 08:12:02 CBC w/ auto diff 2023 024 [facility] (Lab), [address] [place], [address], 12/11/2024 07:40:59 CMP, serum or plasma 2023 024 [facility] (Lab), [address] [place], [address], 12/11/2024 07:40:59 vitamin D, 25-hydrox y, total, serum 2023 024 [facility] (Lab), [address] [place], [address], 06/28/2024 08:12:01 hepatitis C virus Ab, serum 2023 024 [facility], [address] [place], [address], 06/28/2024 08:12:02 vitamin B12, serum 2023 024 [facility] (Lab), [address] [place], [address], 06/28/2024 08:12:01 TSH, serum or plasma 2023 024 [facility] (Lab), [address] [place], [address], 12/11/2024 07:40:58 T4, free, serum 2023 024 [facility] (Lab), [address] [place], [address], 06/28/2024 08:12:01 Referral hematolog ist referral - Please call patient to schedule an appointme nt. Thank you. 2024 025 RICHIE Guillen MD, [address] [place], [address], 06/28/2025 16:22:44 Procedures upper endoscopy procedure (EGD) (PROC) - Please call patient to schedule an appointme nt. Thank you. 2024 025 som Moreland MD, [address], [address], [place], [address], 09/17/2025 18:18:09 colonosco py screening (PROC) - Please call patient to schedule an appointme nt. Thank you. 2024 025 som Moreland MD, [address], [place], [address], 09/17/2025 18:18:09 Surgeries None recorded. Imaging None recorded. Medication Orders omeprazol e 20 mg capsule,d elayed release 2024 025 [id number], [address] [place], [place], [id number], 12/12/2024 09:20:58 Eliquis 5 mg tablet 2024 025 [facility] #[id number], [address] [place], [place], [id number], 12/12/2024 09:20:57 omeprazol e 20 mg capsule,d elayed release 2023 024 [id number], [address] [place], [place], [id number], 06/13/2024 09:44:19 Patient TargetsNo targets recorded. Patient Instructions Encounter Date Encounter Id Patient Instructions Last Modified By Organization Details Last Modified Time 06/13/2024 [id number] Follow up in 6 months Obtain labs Prescription sent to pharmacy Tests: None Referral: None Recommend: None Not available 06/13/2024 09:43:08 12/12/2024 [id number] Follow up in 6 months Prescriptions sent to pharmacy Tests: Referral: Recommend: Tetanus vaccine Not available 12/12/2024 09:20:52 01/04/2025 [id number] Follow up in 3 months Obtain labs Tests: Referral: Recommend: Not available 01/04/2025 09:20:19 Reason for Referral Please call patient to [facility] an appointment. Thank you. Referring Physician: Nora Muir, Internal Medicine, Encounter Date: 06/12/2025 Results Created Date Observation Date Name Description Value Unit Range Abnormal Flag Note LastModifiedBy Organization Detail LastModifiedTime Result Notes None recorded. 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 411354122 Completed 06/13/2024 Amber Haskins APRN [address], [address], [place], [address], [employer] [facility] [employer] [facility] [employer] 4 14:47:56 Low back pain 807792915 Active Amber Haskins APRN [address], [place], [address], [employer] [facility] [address] [facility] 4 09:49:01 Current tear of medial cartilage AND/OR meniscus of knee Completed 06/13/2024 Amber Haskins APRN [address], [address], [place], [address], [employer] [facility] [employer] 4 14:47:54 Hematoche adrián 705567242 Active Amber Haskins APRN [address], [address], [place], [address], [employer] [facility] [employer] 4 15:34:49 Vomiting 785114187 Completed 06/13/2024 Amber Haskins APRN [address], [place], [address], [employer] 4 14:47:33 Factor V deficienc y 0055990 Active Amber Haskins APRN [address], [address], [place], [address], [employer] [facility] [employer] 4 15:34:42 Pain of hip region 11499701 Completed 06/13/2024 Amber Haskins APRN [address], [address], [place], [address], [employer] [facility] [employer] 4 14:47:51 Pulmonary embolism 00287476 Completed 06/13/2024 Amber Haskins APRN [address], [place], [address], [employer] [facility] [address] [facility] [employer] 4 14:47:41 Sprain of left ankle 601143119300 98209 Active Amber Haskins APRN [address], [address], [place], [address], [employer] 4 10:22:40 Pleurisy 444292443 Active Amber Haskins APRN [address], [place] [address], [place], [address], [employer] 5 17:27:53 Exacerbat ion of intermitt ent asthma 099705670 Active Amber Haskins APRN [address], [address], [place], [address], [employer] 5 17:27:53 Factor V Leiden mutation 884895700 Completed 202306/13/2024 Amber Haskins APRN [address], [place] [address], [place], [address], [employer] 4 14:48:09 Hyperlipi demia 04480796 Active 2023 Amber Haskins APRN [address], [place] [address], [place], [address], [employer] 4 14:47:48 Hypothyro idism 75561869 Active 2023 Amber Haskins APRN [address], [place] [address], [place], [address], [employer] 4 14:47:45 Vitamin D deficienc y 85310684 Active 2023 Amber Haskins APRN [address], [place] [address], [place], [address], [employer] 4 14:47:31 Gastroeso phageal reflux disease 932575926 Active 2023 Nora hendrix MD [address], [place] [address], [place], [address], [employer] [facility] 5 09:38:48 Pain of left ankle joint 553489234436 78665 Active 2023 JING Farzier null, [employer] 4 10:35:20 Nocturia 059632193 Active 2024 Amber Haskins APRN [address], [address], [place], [address], [employer] [facility] [employer] [facility] 5 14:05:30 Micturiti on frequency and polyuria 052502233 Active 2024 Amber Haskins APRN [address], [place], [address], [employer] [facility] 5 09:20:46 Serum creatinin e above reference range 021642492 Active 2024 Amber Haskins APRN [address], [place], [address], [employer] [facility] [employer] [facility] 5 08:55:44 Chronic kidney disease stage 3B 231300217 Active 2024 Amber Haskins APRN [address], [place], [address], [employer] [facility] 5 08:20:38 Heterozyg ous Factor V Leiden mutation 822786695 Active 2024 Nora hendrix MD [address], [place], [address], [employer] [facility] [employer] [facility] 5 09:30:52 Vitamin D below reference range 404587405 Active 2024 Nora hendrix MD [address], [place], [address], [employer] [facility] 5 09:46:01 Cyst of right upper eyelid 146943696760 103 Active 2024 Nora hendrix MD [address], [place], [address], [employer] [facility] [employer] [facility] 5 09:48:19 Problem Notes None recorded. Medical Equipment None Reported. Allergies Allergen ID Allergen Name Allergen Category Reaction Reaction Severity Criticality Documentation Date Start Date Code Code System Note Provider Name and Address Organization Details Recorded Time acetamino phen / hydrocodo ne medicatio n Not available Not available Not available 01/06/2023 91916 2 Rx[facility] Not Available [facility] 3 08:14:33 40247 amoxicill in medicatio n vomiting Not available Not available 01/20/2024 723 RxNorm Italo Amaya CMA null, [place] - [facility] 4 09:05:25 Medications Name Sig Start Date [...] route as needed. 02/09 completed called toño mad Not Available Not Available Not Available ketorolac [...] TAKE 1 CAPSULE BY MOUTH EVERY DAY NEEDED FOR GERD 2024 active Not Available Not Available Not Avai lable aspirin 81 mg chewable tablet Chew 1 [...] Not Available Not Available Not Available Fluvirin 7323-0648( PF) 45 mcg (15 mcg x3)/0.5 mL intramuscu lar syringe active Not Available Not Available Not Available Vitals Date Recorded Body height Body mass index (BMI) Body weight Body temperature Heart rate Oxygen saturation Pain severity - 0-10 verbal numeric rating [Score] - Reported Systolic And Diastolic Provider Name and Address Organization Details Last Updated DateTime 5 168.91 cm 28.1 kg/m2 91960.8 5 g 97.3 [degF] 97 /min 98 % 0 114/72 mm[Hg] Sujatha Milan MA [facility] [employer] [facility] 5 09:07:46 Date Recorded Body height Body mass index (BMI) Body weight Body temperature Heart rate Oxygen saturation Pain severity - 0-10 verbal numeric rating [Score] - Reported Systolic And Diastolic Provider Name and Address Organization Details Last Updated DateTime 5 168.91 cm 28.1 kg/m2 26217.8 5 g 97.4 [degF] 80 /min 98 % 0 108/72 mm[Hg] Sujatha Milan MA [facility] [employer] [facility] 5 09:07:14 Date Recorded Body height Body mass index (BMI) Body weight Heart rate Oxygen saturation Pain severity - 0-10 verbal numeric rating [Score] - Reported Body temperature Systolic And Diastolic Provider Name and Address Organization Details Last Updated DateTime 5 168.91 cm 26.6 kg/m2 33823.9 3 g 68 /min 95 % 0 96.8 [degF] 104/72 mm[Hg] Sujatha Milan MA [facility] [employer] [facility] 5 09:21:42 Date Recorded Body height Body mass index (BMI) Body weight Body temperature Heart rate Oxygen saturation Systolic And Diastolic Provider Name and Address Organization Details Last Updated DateTime 4 168.91 cm 26.2 kg/m2 40434.7 4 g 97.2 [degF] 63 /min 96 % 118/68 mm[Hg] Sujatha Milan MA [facility] 4 09:03:54 Date Recorded Body height Body mass index (BMI) Body weight Pain severity - 0-10 verbal numeric rating [Score] - Reported Provider Name and Address Organization Details Last Updated DateTime 08/16/2024 168.91 cm 26.2 kg/m2 10407.74 g 5 JING Frazier [facility] 08/16/2024 10:33:12 Social History Question Answer Notes LastModified by Organizat ion Details LastModified Time Tobacco Smoking Status Former Smoker Not Available [employer] 01/06/2023 08:06:27 What Is Your Level Of Caffeine Consumption? Moderate MIGRATION.77626 [id number] Information not available 01/06/2023 In The 14 Days Before Symptom Onset, Have You Had Close Contact With A Laboratory-confi rmed COVID-19 While That Case Was Ill? No MIGRATION.19430 21936 Information not available 01/06/2023 In The 14 Days Before Symptom Onset, Have You Had Close Contact With A Person Who Is Under Investigation For COVID-19 While That Person Was Ill? No MIGRATION.67875 89471 Information not available 01/06/2023 What Type Of Diet Are You Following? REGULAR MIGRATION.68883 96628 Information not available 01/06/2023 What Is The Highest Grade Or Level Of School You Have Completed Or The Highest Degree You Have Received? [id number] MIGRATION.15927 86802 Information not available 01/06/2023 Have There Been Any Changes To Your Family Or Social Situation? No MIGRATION.68772 92085 Information not available 01/06/2023 What Is The Fluoride Status Of Your Home? Unknown MIGRATION.06433 12369 Information not available 01/06/2023 When Did You Quit Smoking? 6-10yearssincelastc igarette MIGRATION.24498 16711 Information not available 01/06/2023 Are There Any Guns Present In Your Home? No MIGRATION.56603 67187 Information not available 01/06/2023 Do You Use Insect Repellent Routinely? No MIGRATION.51644 97408 Information not available 01/06/2023 Where Do You Live? [place]House MIGRATION.24421 97431 Information not available 01/06/2023 What Was The Date Of Your Most Recent Tobacco Screening? 06/12/2025 Information not available 06/12/2025 Do You Have Any Pets? No MIGRATION.65816 87302 Information not available 01/06/2023 Do You Use Your Seat Belt Or Car Seat Routinely? Yes MIGRATION.80355 16615 Information not available 01/06/2023 Do You Have Smoke And Carbon Monoxide Detectors In Your Home? Yes MIGRATION.45951 81967 Information not available 01/06/2023 Are You Passively Exposed To Smoke? No MIGRATION.95652 17289 Information not available 01/06/2023 Are There Any Smokers In Your House? No MIGRATION.53304 12808 Information not available 01/06/2023 Do You Use Sunscreen Routinely? No MIGRATION.97241 66262 Information not available 01/06/2023 Have You Recently Traveled Abroad? No MIGRATION.44664 58510 Information not available 01/06/2023 Do You Have Any Dietary Restrictions? No MIGRATION.24438 12835 Information not available 01/06/2023 Sex: Unknown Functional Status Question Answer Note LastModified by Organizat ion Details LastModified Time Do you use any illicit or recreational drugs? No MIGRATION.0343781 026 Information not available 01/06/2023 Do you or have you ever used any other forms of tobacco or nicotine? No MIGRATION.2456192 026 Information not available 01/06/2023 What is your level of alcohol consumption? None MIGRATION.6344238 026 Information not available 01/06/2023 Are you currently employed? 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 Moderate MIGRATION.9242813 026 Information not available 01/06/2023 Mental Status Question Answer Note LastModified by Organizat ion Details LastModified Time Do you feel stressed (tense, restless, nervous, or anxious, or unable to sleep at night)? [id number] MIGRATION.[id number] 6 Information not available 01/06/2023 Family History Relationship Description Onset Age of this Age Resolved Age Notes LastModified by Organization Details LastModified Time Sister Blood coagulation disorder 18 MIGRATION.202 [id number] Not available 01/06/2023 08:06:44 Father Family history of stroke [email or web address] Not available 2023 10:34:08 Father Hypertensive disorder [email or web address] Not available 2023 10:34:22 Medical History Condition Response NERVE DISEASE N BLINDNESS N RHEUMATIC FEVER N KIDNEY STONES N BLADDER PROBLEMS N MRSA N OTHER # 1 N POLIO N LUNG DISEASE/DISORDER N HISTORY OF DRUG ABUSE N COPD N RADIATION / CHEMOTHERAPY N Other # 2 N BLOOD DISEASES N EAR OR HEARING PROBLEMS N MUMPS N SHINGLES N BOWEL PROBLEMS N DEPRESSION (INCLUDING POST ) N STROKE/TIA N ULCERS N BENIGN PROSTATIC HYPERPLASIA N MEASLES N HYPOTENSION N MYOCARDIAL INFARCTION N OBESITY N GERD/NAUSEA N ANEURYSM N URINARY/BLADDER/KIDNEY PROBLEMS N CORONARY ARTERY DISEASE (CAD) N ADDICTION CONCERNS N ENDOMETRIOSIS N Impotence N USE OF BLOOD THINNERS N SKIN [...] GLAUCOMA N FOOT PROBLEM N DIVERTICULITIS N CHICKENPOX N SLEEP APNEA N INFECTIOUS DISEASE N HEART ARRHYTHMIA N PROSTATE N INSOMNIA N HIGH CHOLESTEROL / HYPERLIPIDEMIA N HYPERTHYROIDISM N EYE PROBLEMS N EDEMA N CHRONIC PAIN SYNDROME N HYPOTHYROIDISM N CAROTID BLOCKAGE N CONSTIPATION N BACK / NECK PROBLEMS N HAVE YOU BEEN HOSPITALIZED OR SEEN IN [facility] IN THE PAST YEAR ? N ATHEROSCLEROSIS N BREAST PROBLEMS N DIALYSIS N ECZEMA N OSTEOPOROSIS N ARTHRITIS N NO SIGNIFICANT PAST MEDICAL HISTORY N APPENDICITIS N DIABETES, TYPE N BAD TEETH N ENT N HEARTBURN / REFLUX N AUTISM SPECTRUM DISORDER (ASD) N HEPATITIS / LIVER DISEASE N GOUT N SLEEP DISORDER N ALZHEIMER'S DISEASE N Brain Problems N HERPES N DEMENTIA N HEADACHES/MIGRAINES N SEIZURES/EPILEPSY N VASCULAR DISEASE N PACEMAKER N Blood Disorder Y DIZZINESS N HEART DISEASE/HEART PROBLEMS N KIDNEY DISEASE N MULTIPLE SCLEROSIS N CARDIAC ARRHYTHMIA N CANCER: SPECIFY N ATRIAL FIBRILLATION N Gall Stones N PULMONARY EMBOLISM N AUTOIMMUNE DISEASE N Immunizations Vaccine Type Date Status Note Provider Nam e and Address Organization Details Recorded Time Tdap 06/08/2020 completed Amber Haskins APRN [address], [address], [place], [address], [place] [facility] [employer] [employer] 06/13/2024 09:41:12 Influenza, high-dose, trivalent, PF 09/01/2014 completed Amber Haskins, GERSON [address], [address], [place], [address], [facility] [employer] [facility] [employer] 05/17/2024 09:46:04 Past Encounters Encounter ID Performer Location Encounter Start Date Encounter Closed Date Diagnosis/Indication Diagnosis SNOMED-CT Code Diagnosis ICD10 Code Diagnosis IMO Codes Diagnosis Note [id number] JOSE Agrawal [facility] Internal Med [facility] [address] [address] 05/26/2022 00:00:00 05/26/2022 12:17:27 [id number] Nora downs MD [facility] Internal Med [facility] [address] , [address] [address] 07/02/2022 00:00:00 07/02/2022 11:55:12 [id number] Nora downs MD [facility] Internal Med [facility] [address] , [address] [address] 01/20/2024 08:54:27 01/20/2024 09:36:14 Transition of care 5443303140 105 Z75.8 Factor V L eiden mutation 775092499 D68.51 Adult heal th examination 139667990 Z00.00 Z13.997 [id number] Nora downs MD [facility] Internal Med [facility] [address] [address] 06/13/2024 08:54:59 06/13/2024 09:51:27 Hyperlipidemia 42110410 E78.5 Hypothyroidism 03284537 E03.9 Vitamin D deficiency 347 93965 E55.9 Adult heal th examination 081385946 Z00.00 Z13.220 Gastroesop hageal reflux disease 693286951 K21.9 Hepatitis C screening 41 3722677 Z11.59 [id number] Sloan Gupta MD [facility] Ortho [address] [place] [address] 08/16/2024 10:05:08 08/16/2024 11:08:54 Pain of left ankle joint 7493440707 4690237 M25.430 [id number] Nora downs MD [facility] Internal Med [facility] [address] [place] [address] 12/12/2024 08:58:43 12/12/2024 09:25:52 Gastroesophageal reflux disease 841427681 K21.9 Factor V L eiden mutation 206292839 D68.51 [id number] Nora downs MD [facility] Internal Med [facility] [address] [place] [address] 01/04/2025 08:57:33 01/04/2025 09:29:16 Micturition frequency and polyuria 277280641 R35.0 [id number] Nora downs MD [facility] Internal Med [facility] [address] [place] [address] 06/12/2025 09:10:43 06/12/2025 09:46:40 Screening due 197145996 Z13.9 00577157 C-scope: Dr Mcclellan 01/16/2016 , next at age 50 years Get yearly flu shot, get tdap if not done, get shingrix vaccineGet COVID 19 vaccine and its boostersCa n do RSV vaccineCan do prevnar #20 vaccine RTC in 3 months, do labs, ER if worse, he verbalized his understand ing of the above Heterozygo us Factor V Leiden mutation 539099102 D68.51 9086276 Hx of DVT 2008, PE in 2009Seen by Dr Guillen 08/16/2024 , on eliquis Gastroesop hageal reflux disease 682660500 K21.9 83265805 On omeprazole 20mg dailyGet labs Hyperlipid emia screening 427453468 Z13.220 327560 Vitamin D below reference range 651883760 R79.89 54519477 Screening for malignant neoplasm of colon 209595454 Z12.11 000675 Screening for malignant neoplasm of prostate 146531840 Z12.5 921981 Cyst of ri ght upper eyelid 9133998264 92865 H02.931 8974180 No complaints as per his history today, offered eye MD/OD apt, he has declined Health Concerns Section Related Observation LastModified by Organization Detai ls LastModified Time None Recorded Concern Status LastModified by Organization Details LastModified Time None Recorded Advance Directives Directive None Recorded Payers Insurance Date Sequence Insurance Name Policy Number Policy Burdick Covered Member ID Burdick Member ID Guarantor Name 06/12/[address] [facility] Galo Malave Nohemi [id number] Galo Malave Nohemi 06/12/2025 1 [facility] (MEDICAID HMO) [id number] Galo Malave Nohemi [id number] Galo Malave Nohemi 06/12/2025 1 [employer] (PPO) Galo Malave Nohemi [id number] Galo Malave Nohemi 06/22/2025 2 [facility] Galo Malave Nohemi [id number] Galo Malave Nohemi Notes Date Note Type Note Provider Name and Address Organization Details Recorded Time 06/13/2024 text/html Galo presents today for 3 [...] does not help with the reflux. Amber Haskins, [employer] [address] [facility], [facility] [address], [place], [address], [facility] [employer] 06/13/2024 09:45:43 12/12/2024 text/html Galo presents today [...] does not help with the reflux. Amber Haskins APRN [address], [address], [place], [address], [facility] 12/12/2024 09:21:14 01/04/2025 text/html 01/04/2025Galo presents today for 1 month follow up. [...] does not help with the reflux. 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
--- OUTSIDE RECORDS SUMMARY | 2025-10-02 19:30 | XMS_ITS | Clinical Summary ---
Author Organization [facility] Address [address] [place] [id number] Care Team Providers Care Loan Underwriter Name Role Phone Amber Haskins NP Primary Care Provider [phone] Allergies Active Allergy Reactions Criticality Noted Date [...] on file Legal Sex Male 9:27 PM MANAGER OF SELECTION AND ASSESSMENT Gender Identity Not on file Sexual Orientation [...] Associated Diagnosis Comments COLONOSCOPY 01/16/2016 12:00 AM MANAGER OF SELECTION AND ASSESSMENT from Last 3 Months or Most Recently Relevant to Health Maintenance Results * COLONOSCOPY (01/16/2016 12:00 AM MANAGER OF SELECTION AND ASSESSMENT) Anatomical Region Laterality Modality Other Narrative 01/16/2016 12:00 AM MANAGER OF SELECTION AND ASSESSMENT Ordered by an unspecified provider. Procedure Note Provider, MD Sony - 01/16/2016 12:00 AM CST PROCEDURE REPORT Patient: GALO WHITMAN Account: [id number] Room No: : 1975 Patient Type: [facility] Attend.: Sloan Mcclellan M.D. Admit Date: 01/16/2016 [...] Sloan Mcclellan MD On 01/17/2016 11:30 AM MANAGER OF SELECTION AND ASSESSMENT Sloan Mcclellan M.D. /laura TD: 01/17/2016 08:04 CC: Jamin Melo MD us Historical Provider ENDOSCOPY PROCEDURES Jennifer l Result from Last 3 Months or Most Recently Relevant to Health Maintenance Insurance [employer] [facility] H[facility]/PPO Address: [place] [address] Care Teams Loan Underwriter Relationship Specialty Start Date End Date Amber Haskins NP [phone] [phone] PCP - General Family Medicine 01/20/25
[2025-10-02] MEDS: oxyCODONE/ACETAMINOPHEN (*CRX) 5-325 MG TABLET 1 TABLET PO ×2 (19:34→20:09)
--- NOTE | 2025-10-02 19:45 | PC.NURSE ---
Per Denisha HVAC RESIDENTIAL SERVICE TECHNICIAN, pt is soaking his thumb in betadine and saline at this time. Pt requested pain medications at this time. provider notified
--- NOTE | 2025-10-02 20:38 | PC.NURSE ---
per thanh DIRECTOR POST, non-adherent guze placed over the wound, thumb sleeve, metal thumb splint, and coban applied
[2025-10-02 20:52] VITALS: BP 109/74; PULSE 73; RESP 16; O2SAT 98
== END 2025-10-02 20:55 | disposition home or self-care (01) ==
PROVIDERS: Emergency Provider Registered Nurse
DX: S61.012A Laceration without foreign body of left thumb without damage to nail, initial encounter (principal); N28.9 Disorder of kidney and ureter, unspecified; E78.5 Hyperlipidemia, unspecified; E03.9 Hypothyroidism, unspecified; K21.9 Gastro-esophageal reflux disease without esophagitis; M19.90 Unspecified osteoarthritis, unspecified site; J45.909 Unspecified asthma, uncomplicated; D68.51 Activated protein C resistance; W26.8XXA Contact with other sharp object(s), not elsewhere classified, initial encounter; Z23 Encounter for immunization
CPT/HCPCS: 12001; 73140; 90471; 90715; 99283; A9270